=== PATIENT | male | born 1985 | race African-American/Black ===

== ENCOUNTER 2020-11-01 14:05 | Emergency (ER) | payer SELFPAY | END 2020-11-01 19:15 | disposition left against medical advice (07) | PROVIDERS: Emergency Provider Emergency Medicine | DX: R10.9 Unspecified abdominal pain (principal) | CPT/HCPCS: 99281 ==

== ENCOUNTER 2020-11-02 22:26 | Emergency (ER) | payer OTHER, SELFPAY ==
--- NOTE | 2020-11-02 22:47 | ECG_ITS ---
Test Reason : BURNING [place]ENS[place] Blood Pressure : / mmHG Vent. Rate : 063 BPM Atrial Rate : 063 BPM P-R Int : 150 ms QRS Dur : 080 ms QT Int : 386 ms P-R-T Axes : 064 -47 008 degrees QTc Int : 395 ms Normal sinus rhythm Left anterior fascicular block Nonspecific T wave abnormality Abnormal ECG No previous ECGs available Referred By: Leonor Jeffery Electronically Signed By:JUAN ANTONIO VAZQUEZ MD
--- NOTE | 2020-11-03 00:51 | ED.CHESTPAIN ---
HPI - Chest Pain General Chief Complaint: Chest Pain Stated Complaint: chest pain Time Seen by Provider: 11/02/20 23:14 Source: patient Mode of arrival: ambulatory Limitations: no limitations History of Present Illness MD complaint: chest pain Onset (ago): week(s) (2) Timing of current episode: constant Onset: during rest and during exertion Pain location: substernal and epigastric Pain radiation: none Severity: moderate Relieving factors: antacids Exacerbating factors: eating Treatment prior to arrival: none Related Data Previous Rx's Medication Instructions Recorded omeprazole 20 mg PO DAILY 14 Days #14 tab 11/03/20 Allergies Allergy/AdvReac Type Severity Reaction Status Date / Time No Known Allergies Allergy Verified 11/03/20 00:56 Review of Systems Review of Systems: Constitutional : No Weight loss, No Fever, No Chills ENT/Mouth : No sore throat, No Rhinorrhea Eyes: No Eye Pain, No Swelling Cardiovascular : pos Chest Pain, no SOB, no Dyspnea on Exertion, No Orthopnea, No Edema, No Palpitations Respiratory : No Cough, No Sputum Gastrointestinal : no Nausea, No Vomiting, No Diarrhea, No abdominal Pain, No Hematochezia, No Melena Genitourinary : No Dysuria, No Urinary Frequency Musculoskeletal : No joint pain, No Myalgias, No Joint Swelling Skin : No Skin Lesions, No rash Neuro : No Weakness, No Numbness, No Dizziness, No Headache Psych : No Anxiety/Panic, No Depression Heme/Lymph: No Bruising, No Lymphadenopathy Endocrine : No Polyuria, No Polydipsia All other systems reviewed and are negative [facility]LY [facility] Past Medical History Medical History No active medical problems Social History Social History (Updated 11/03/20 @ 01:03 by Leonor Jeffery DO) Alcohol intake: current Alcohol intake frequency: holidays/special occasions only Alcohol type: beer Smoking Status: Never smoker Use of substances other than those prescribed or required for medical reasons: No Advance Directives: No Advance Directives Information Provided: No Physical Exam Vital Signs: Vital Signs: Last Vital Signs Temp 98.2 F 11/03/20 01:25 Pulse 56 11/03/20 03:48 Resp 3 L 11/03/20 03:48 BP 111/76 11/03/20 03:48 Pulse Ox 99 11/03/20 03:48 Body Mass Index 32.5 Appearance: Alert. Oriented X3. No acute distress. Eyes: Pupils equal, round and reactive to light. ENT: Pharynx normal. Neck: Normal inspection. Neck supple. CVS: Normal heart rate and rhythm. Pulses normal. Respiratory: No respiratory distress. Breath sounds normal. Abdomen: Soft and nontender. Skin: Skin warm and dry. Normal skin color. Normal skin turgor. Extremities: No lower extremity edema. No calf ttp Neuro: Oriented X 3. No motor deficit. No sensory deficit. Course Course Course Narrative: repeat troponin negative, feels much better, stable for DC no distress MDM - Chest Pain MDM Narrative Medical decision making narrative: 35 yo male with no sig PMH who comes in with 2 weeks of burning epigastric and chest pain - possible GERD, at this time will need labs, EKG, CXR, troponin x 1, PPI and GI cocktail - PERC negative Lab Data Result diagrams: 11/03/20 02:19 11/03/20 02:19 Labs: Lab Results 11/03/20 11/03/20 11/03/20 Range/Units 02:18 02:18 02:18 WBC (4.8-10.8) X10*3/uL RBC (4.60-5.80) X10*6/uL Hgb (14.0-18.0) g/dl Hct (42-52) % MCV (80-98) fL MCH (27.0-33.0) pg MCHC (31.0-36.0) g/dl RDW (11.0-16.0) % Plt Count (160-400) X10*3/uL MPV (9.4-12.4) fL Immature Gran % (Auto) (0.0-0.4) % Neut % (Auto) (45-73) % Lymph % (Auto) (20-40) % [place] % (Auto) (2-11) % Eos % (Auto) (0-4) % Baso % (Auto) (0-2) % Lymph # (Auto) (1.2-4.9) X10*3/uL [place] # (Auto) (0.1-1.2) X10*3/uL Eos # (Auto) (0.0-0.4) X10*3/uL Baso # (Auto) (0.0-0.2) X10*3/uL Abs Immat Gran (auto) (0.00-0.03) X10*3/uL Absolute Neuts (auto) (2.0-8.3) X10*3/uL Absolute Nucleated RBC (0.0-0.012) X10*3/uL Nucleated RBC % (auto) (0.0-0.2) /100WBC Hold Blue Top SEE NOTE Sodium (135-145) mmol/L Potassium (3.3-5.1) mmol/l Chloride (96-108) mmol/L Carbon Dioxide (22-29) mmol/L Anion Gap (12-20) BUN (9-16) mg/dL Creatinine (0.5-1.4) mg/dL Estim Creat Clear Calc Estimated GFR Random Glucose (60-115) mg/dL Calcium (8.4-10.2) mg/dL Magnesium (1.6-2.6) mg/dL Total Bilirubin (0.0-1.0) mg/dL Direct Bilirubin (0.0-0.5) mg/dL AST (5-37) U/L ALT (0-40) U/L Alkaline Phosphatase (39-117) U/L Troponin I High Sens 16.9 (<3.5-35.0) ng/L Total Protein (6.5-8.0) g/dL Albumin (3.5-5.0) g/dL Lipase 70 (8-78) U/L 11/03/20 11/03/20 11/03/20 Range/Units 02:19 02:19 04:47 WBC 6.6 (4.8-10.8) X10*3/uL RBC 5.59 (4.60-5.80) X10*6/uL Hgb 15.0 (14.0-18.0) g/dl Hct 46.0 (42-52) % MCV 82.3 (80-98) fL MCH 26.8 L (27.0-33.0) pg MCHC 32.6 (31.0-36.0) g/dl RDW 14.1 (11.0-16.0) % Plt Count 250 (160-400) X10*3/uL MPV 9.7 (9.4-12.4) fL Immature Gran % (Auto) 0.2 (0.0-0.4) % Neut % (Auto) 47.6 (45-73) % Lymph % (Auto) 41.9 H (20-40) % [place] % (Auto) 7.4 (2-11) % Eos % (Auto) 2.6 (0-4) % Baso % (Auto) 0.3 (0-2) % Lymph # (Auto) 2.8 (1.2-4.9) X10*3/uL [place] # (Auto) 0.5 (0.1-1.2) X10*3/uL Eos # (Auto) 0.2 (0.0-0.4) X10*3/uL Baso # (Auto) 0.0 (0.0-0.2) X10*3/uL Abs Immat Gran (auto) 0.01 (0.00-0.03) X10*3/uL Absolute Neuts (auto) 3.1 (2.0-8.3) X10*3/uL Absolute Nucleated RBC 0.000 (0.0-0.012) X10*3/uL Nucleated RBC % (auto) 0.0 (0.0-0.2) /100WBC Hold Blue Top Sodium 139 (135-145) mmol/L Potassium 4.3 (3.3-5.1) mmol/l Chloride 103 (96-108) mmol/L Carbon Dioxide 26 (22-29) mmol/L Anion Gap 14 (12-20) BUN 19 H (9-16) mg/dL Creatinine 1.06 (0.5-1.4) mg/dL Estim Creat Clear Calc 122.7 Estimated GFR > 60 Random Glucose 106 (60-115) mg/dL Calcium 9.0 (8.4-10.2) mg/dL Magnesium 2.2 (1.6-2.6) mg/dL Total Bilirubin 0.2 (0.0-1.0) mg/dL Direct Bilirubin < 0.2 (0.0-0.5) mg/dL AST 37 (5-37) U/L ALT 40 (0-40) U/L Alkaline Phosphatase 52 (39-117) U/L Troponin I High Sens 16.8 (<3.5-35.0) ng/L Total Protein 6.7 (6.5-8.0) g/dL Albumin 4.1 (3.5-5.0) g/dL Lipase (8-78) U/L ECG Data ECG #1: Attestation: I personally reviewed and interpreted this ECG as follows: ECG interpretation date: 11/03/20 ECG interpretation time: 00:59 Interpretation: Rate: 63 Rhythm: NSR [place]: left Normal P waves. Normal DAVON. Normal QRS complex. ST T wave : normal, no YANDEL, no acute ischemia qTC: normal prior studies: no acute ischemia The study has been interpreted contemporaneously by me. . Discharge Plan Discharge Clinical Impression: Atypical chest pain Patient Disposition: Home, Self-Care Instructions: Chest Pain (ED) Additional Instructions: return to ED for any worsening symptoms or concerns Prescriptions: New omeprazole 20 mg tablet,delayed release (DR/EC) 20 mg PO DAILY 14 Days Qty: 14 RF: 0 Referrals: Physician,Unknown [Primary Care Provider] - 2 days (PCP if not better) Stand Alone Forms: Work/School Release
--- NOTE | 2020-11-03 00:57 | XR_ITS ---
EXAMINATION: XR CHEST CLINICAL INFORMATION: Chest pain COMPARISON: None TECHNIQUE: Frontal view of the chest was obtained. FINDINGS: EKG leads overlie the chest. Lungs are clear. Lung volumes are normal. No consolidation, pneumothorax, or pleural effusion. Cardiac and mediastinal contours are normal. Pulmonary vasculature is unremarkable. No acute osseous findings. XR/XR chest 1V IMPRESSION: No acute pulmonary findings.
[2020-11-03] MEDS: Omeprazole 20 MG CAPSULE.DR PO (01:17)
[2020-11-03] MEDS: Lidocaine HCl Viscous 2 % 15 ML SOLUTION MUCOUS MEM (01:18)
[2020-11-03] MEDS: Magnesium Hydrox/Alum Hydrox 30 ML ORAL.SUSP 15 ML PO (01:18)
[2020-11-03 01:25] VITALS: BP 110/75; PULSE 58; RESP 18; TEMP 36.8; O2SAT 99; BMI 32.5
--- NOTE | 2020-11-03 01:27 | PC.NURSE ---
pt medicated for a burning feeling to his chest. hob elevated. skin pink warm and dry. vitals stable.
[2020-11-03 02:24] LABS: MANUAL DIFF FLAG NO
[2020-11-03 02:26] LABS: Basophils Percent Auto 0.3 % (0-2); Eosinophils Absolute Auto 0.2 X10*3/uL (0.0-0.4); Eosinophils Percent Auto 2.6 % (0-4); Imm Gran Abs Auto 0.01 X10*3/uL (0.00-0.03); Imm Gran Pct Auto 0.2 % (0.0-0.4); Lymphocytes Absolute Auto 2.8 X10*3/uL (1.2-4.9); Lymphocytes Percent Auto 41.9 % (20-40); Mean Corpuscular HGB Conc 32.6 g/dl (31.0-36.0); Mean Corpuscular Hemoglobin 26.8 pg (27.0-33.0); Mean Corpuscular Volume 82.3 fL (80-98); Mean Platelet Volume 9.7 fL (9.4-12.4); Monocytes Absolute Auto 0.5 X10*3/uL (0.1-1.2); Monocytes Percent Auto 7.4 % (2-11); Neutrophils Absolute Auto 3.1 X10*3/uL (2.0-8.3); Neutrophils Percent Auto 47.6 % (45-73); Platelet Count 250 X10*3/uL (160-400); Red Blood Count 5.59 X10*6/uL (4.60-5.80); Red Cell Distribution Width 14.1 % (11.0-16.0); White Blood Count 6.6 X10*3/uL (4.8-10.8)
[2020-11-03 02:48] LABS: Alanine Aminotransferase 40 U/L (0-40); Albumin Level 4.1 g/dL (3.5-5.0); Alkaline Phosphatase 52 U/L (39-117); Anion Gap 14 (12-20); Aspartate Amino Transferase 37 U/L (5-37); Bilirubin Direct < 0.2 mg/dL (0.0-0.5); Bilirubin Total 0.2 mg/dL (0.0-1.0); Blood Urea Nitrogen 19 mg/dL (9-16); Carbon Dioxide 26 mmol/L (22-29); Chloride 103 mmol/L (96-108); Creatinine Clr Calc Pharmacy 122.7; Estimated Glomerular Filt Rate > 60; Glucose Random 106 mg/dL (60-115); Magnesium 2.2 mg/dL (1.6-2.6); Potassium 4.3 mmol/l (3.3-5.1); Sodium 139 mmol/L (135-145); Total Protein 6.7 g/dL (6.5-8.0)
[2020-11-03 02:48] LABS: Lipase 70 U/L (8-78)
[2020-11-03 02:51] LABS: Troponin-I High Sensitivity 16.9 ng/L (<3.5-35.0)
[2020-11-03 03:48] VITALS: BP 111/76; PULSE 56; RESP 3; O2SAT 99
[2020-11-03 04:00] VITALS: BP 114/61; PULSE 57; RESP 18; O2SAT 98
[2020-11-03 05:21] LABS: Troponin-I High Sensitivity 16.8 ng/L (<3.5-35.0)
[2020-11-03 05:28] VITALS: BP 103/65; PULSE 56; RESP 16; O2SAT 98
== END 2020-11-03 05:33 | disposition home or self-care (01) ==
PROVIDERS: Emergency Provider Emergency Medicine
DX: R07.89 Other chest pain (principal); Z79.899 Other long term (current) drug therapy
CPT/HCPCS: 36415; 71045; 80048; 80076; 83690; 83735; 84484; 85025; 93005; 99284

== ENCOUNTER 2021-01-17 19:11 | Emergency (ER) | payer OTHER, SELFPAY ==
--- NOTE | ~2021-01-17 | US_ITS ---
EXAMINATION: ABDOMINAL ULTRASOUND LIMITED CLINICAL INFORMATION: Right upper quadrant pain. COMPARISON: None. TECHNIQUE: Limited real-time imaging of the right upper quadrant abdominal viscera. The examination was stopped by the patient before completion. FINDINGS: PANCREAS: The visualized pancreatic head and body are normal in appearance. The remainder of the pancreas is obscured from visualization by the overlying bowel gas. LIVER: The visualized portions of the left lobe of the liver is of normal size and echogenicity without focal lesions nor intrahepatic biliary ductal dilation. US/US abdomen limited IMPRESSION: Unremarkable limited right upper quadrant ultrasound.
[2021-01-17 20:30] VITALS: BP 131/77; PULSE 74; RESP 14; TEMP 36.6; O2SAT 97; BMI 33.5
[2021-01-17 22:53] VITALS: BP 166/93; PULSE 57; RESP 16; TEMP 36.8; O2SAT 99
--- NOTE | 2021-01-17 23:30 | ECG_ITS ---
Test Reason : EPIGASTRIC PAIN Blood Pressure : / mmHG Vent. Rate : 054 BPM Atrial Rate : 054 BPM P-R Int : 162 ms QRS Dur : 082 ms QT Int : 424 ms P-R-T Axes : 053 -04 006 degrees QTc Int : 402 ms Sinus bradycardia with sinus arrhythmia Nonspecific ST and T wave abnormality Abnormal ECG When compared with ECG of 02-NOV-2020 22:47, Left anterior fascicular block is no longer Present Referred By: Roopa Alvarez Electronically Signed By:Joe Horta
[2021-01-17 23:31] VITALS: BP 130/92; PULSE 58; RESP 18; TEMP 36.8; O2SAT 97; BMI 33.5
--- NOTE | 2021-01-17 23:31 | ED.ABDPAIN ---
HPI - Abdominal Pain General Chief Complaint: General Medical Stated Complaint: abdominal pain Time Seen by Provider: 01/17/21 23:27 History of Present Illness HPI narrative: Patient 35 years old presented with having abdominal pain. It is burning in nature. It is worse in the epigastric area. Patient denies any fever chills. No cough and no congestion or upper respiratory symptoms. No diaphoresis. No fever no chills. Patient from home. History of similar pain back in October. Had labs done at [facility]. Patient states that there was a liquid that made it better. Subsequently patient did not take his omeprazole. Came back in for further evaluation. MD elicited complaint: abdominal pain Related Data Previous Rx's Medication Instructions Recorded omeprazole 20 mg PO DAILY 14 Days #14 tab 11/03/20 omeprazole magnesium [Prilosec OTC] 20 mg PO DAILY #30 tab 01/18/21 Allergies Allergy/AdvReac Type Severity Reaction Status Date / Time No Known Allergies Allergy Verified 11/03/20 00:56 Review of Systems Review of Systems Yes all other systems are reviewed and are negative Physical Exam Vital Signs: Vital Signs: Last Vital Signs Temp 98.3 F 01/17/21 23:31 Pulse 58 01/17/21 23:31 Resp 18 01/17/21 23:31 BP 130/92 H 01/17/21 23:31 Pulse Ox 97 01/17/21 23:31 Body Mass Index 33.5 Appearance: Alert. Oriented X3. No acute distress. Eyes: Pupils equal, round and reactive to light. ENT: Pharynx normal. Neck: Normal inspection. Neck supple. No lymph nodes noted. No crepitus CVS: Normal heart rate and rhythm. Pulses normal. Normal S1 and S2 Respiratory: No respiratory distress. Breath sounds normal. No Wheezing. No rales Abdomen: Soft and nontender. No rigidity. No distention. good BS x4 Skin: Skin warm and dry. Normal skin color. Normal skin turgor. Extremities: No lower extremity edema. Neurovascular intact to all extremities. No Lacerations. No Rash Neuro: Oriented X 3. No motor deficit. No sensory deficit. Moving all extermities. No slurred speech MDM - Abdominal Pain MDM Narrative Medical decision making narrative: Patient well-appearing. Lipase is normal no evidence for pancreatitis. Bilirubin is normal. AST ALT only minimally elevated likely from liver parenchymal issues. Ask patient to have an ultrasound. After starting the initial exam patient feels extremely uncomfortable. Ask the geotechnical engineering technician to stop. Patient understood the small risk of having biliary disease still exist. Does not want to study at this time. Patient's electrolytes are otherwise unremarkable. Patient's white count is normal. Patient's claims last time he had omeprazole and that has seems to help. Will have patient continue with the omeprazole. Close follow-up outpatient basis. Avoid fatty foods spicy food. Reflux precaution. In stable condition. Medical Records Attestation: I reviewed the patient's medical records. Lab Data Result diagrams: 01/18/21 00:30 01/18/21 00:30 Labs: Lab Results 01/18/21 01/18/21 01/18/21 Range/Units 00:30 00:30 00:30 WBC 5.5 (4.8-10.8) X10*3/uL RBC 5.55 (4.60-5.80) X10*6/uL Hgb 15.0 (14.0-18.0) g/dl Hct 46.3 (42-52) % MCV 83.4 (80-98) fL MCH 27.0 (27.0-33.0) pg MCHC 32.4 (31.0-36.0) g/dl RDW 14.3 (11.0-16.0) % Plt Count 219 (160-400) X10*3/uL MPV 10.0 (9.4-12.4) fL Immature Gran % (Auto) 0.2 (0.0-0.4) % Neut % (Auto) 40.0 L (45-73) % Lymph % (Auto) 49.8 H (20-40) % [place] % (Auto) 7.0 (2-11) % Eos % (Auto) 2.3 (0-4) % Baso % (Auto) 0.7 (0-2) % Lymph # (Auto) 2.8 (1.2-4.9) X10*3/uL [place] # (Auto) 0.4 (0.1-1.2) X10*3/uL Eos # (Auto) 0.1 (0.0-0.4) X10*3/uL Baso # (Auto) 0.0 (0.0-0.2) X10*3/uL Abs Immat Gran (auto) 0.01 (0.00-0.03) X10*3/uL Absolute Neuts (auto) 2.2 (2.0-8.3) X10*3/uL Absolute Nucleated RBC 0.000 (0.0-0.012) X10*3/uL Nucleated RBC % (auto) 0.0 (0.0-0.2) /100WBC Hold Blue Top SEE NOTE Sodium 140 (135-145) mmol/L Potassium 4.5 (3.3-5.1) mmol/L Chloride 104 (96-108) mmol/L Carbon Dioxide 25 (22-29) mmol/L Anion Gap 16 (12-20) BUN 10 (9-16) mg/dL Creatinine 1.22 (0.5-1.4) mg/dL Estim Creat Clear Calc 105.0 Estimated GFR > 60 Random Glucose 93 (60-115) mg/dL Calcium 9.0 (8.4-10.2) mg/dL Total Bilirubin 0.3 (0.0-1.0) mg/dL AST 49 H (5-37) U/L ALT 54 H (0-40) U/L Alkaline Phosphatase 53 (39-117) U/L Total Protein 6.8 (6.5-8.0) g/dL Albumin 4.2 (3.5-5.0) g/dL Lipase 39 (8-78) U/L ECG Data Attestation: I personally reviewed and interpreted this ECG as follows: Interpretation: Sinus heart rate is 55 CA QRS QT within normal limits it is unchanged from previous EKG. Discharge Plan Discharge Clinical Impression: Gastritis Patient Disposition: Home, Self-Care Instructions: Gastritis (ED) Additional Instructions: NO FATTY FOOD. PLEASE DO NOT EAT 2 HOURS PRIOR TO SLEEPING. EXTRA PILLOW AT NIGHT. CLOSE FOLLOW-UP OUTPATIENT BASIS. PLEASE TAKE YOUR OMEPRAZOLE. Prescriptions: New omeprazole magnesium [Prilosec OTC] 20 mg tablet,delayed release (DR/EC) 20 mg PO DAILY Qty: 30 RF: 0 No Action omeprazole 20 mg tablet,delayed release (DR/EC) 20 mg PO DAILY 14 Days Qty: 14 RF: 0 Referrals: Physician,None [Primary Care Provider] - 2 days [facility] Past Medical History Attestation statement: The following information was validated with the patient. Medical History No active medical problems Social History Social History Alcohol intake: current Alcohol intake frequency: a few times a week Alcohol type: wine Smoking Status: Never smoker Use of substances other than those prescribed or required for medical reasons: No Advance Directives: No Advance Directives Information Provided: Yes
[2021-01-18 00:35] LABS: Basophils Percent Auto 0.7 % (0-2); Eosinophils Absolute Auto 0.1 X10*3/uL (0.0-0.4); Eosinophils Percent Auto 2.3 % (0-4); Hematocrit 46.3 % (42-52); Imm Gran Abs Auto 0.01 X10*3/uL (0.00-0.03); Imm Gran Pct Auto 0.2 % (0.0-0.4); Lymphocytes Absolute Auto 2.8 X10*3/uL (1.2-4.9); Lymphocytes Percent Auto 49.8 % (20-40); MANUAL DIFF FLAG NO; Mean Corpuscular HGB Conc 32.4 g/dl (31.0-36.0); Mean Corpuscular Volume 83.4 fL (80-98); Monocytes Absolute Auto 0.4 X10*3/uL (0.1-1.2); Neutrophils Absolute Auto 2.2 X10*3/uL (2.0-8.3); Platelet Count 219 X10*3/uL (160-400); Red Blood Count 5.55 X10*6/uL (4.60-5.80); Red Cell Distribution Width 14.3 % (11.0-16.0); White Blood Count 5.5 X10*3/uL (4.8-10.8)
[2021-01-18] MEDS: PHENobarb/Hyoscy/Atropine/Scop 10 ML ELIXIR PO (01:09)
[2021-01-18] MEDS: Lidocaine HCl Viscous 2 % 15 ML SOLUTION MUCOUS MEM (01:10)
[2021-01-18] MEDS: Magnesium Hydrox/Alum Hydrox 30 ML ORAL.SUSP PO (01:10)
--- NOTE | 2021-01-18 01:13 | PC.NURSE ---
pt denies nausea at this time. verbal from provider to hold the ivf at this time.
[2021-01-18 01:18] LABS: Alanine Aminotransferase 54 U/L (0-40); Albumin Level 4.2 g/dL (3.5-5.0); Alkaline Phosphatase 53 U/L (39-117); Anion Gap 16 (12-20); Aspartate Amino Transferase 49 U/L (5-37); Bilirubin Total 0.3 mg/dL (0.0-1.0); Blood Urea Nitrogen 10 mg/dL (9-16); Carbon Dioxide 25 mmol/L (22-29); Chloride 104 mmol/L (96-108); Estimated Glomerular Filt Rate > 60; Glucose Random 93 mg/dL (60-115); Lipase 39 U/L (8-78); Potassium 4.5 mmol/L (3.3-5.1); Sodium 140 mmol/L (135-145); Total Protein 6.8 g/dL (6.5-8.0)
[2021-01-18 02:01] VITALS: BP 119/77; PULSE 58; RESP 14; O2SAT 98
== END 2021-01-18 02:13 | disposition home or self-care (01) ==
PROVIDERS: Emergency Provider Emergency Medicine Emergency Medical Services
DX: K29.00 Acute gastritis without bleeding (principal); R10.11 Right upper quadrant pain; Z79.899 Other long term (current) drug therapy
CPT/HCPCS: 36415; 76705; 80053; 83690; 85025; 93005; 96365; 96375; 99284

== ENCOUNTER 2022-01-17 06:02 | Emergency (ER) | payer OTHER, SELFPAY ==
[2022-01-17 06:14] VITALS: BP 137/97; PULSE 59; RESP 14; TEMP 36.6; O2SAT 97; BMI 35.2
[2022-01-17 06:18] VITALS: BP 137/97; PULSE 60; RESP 15; TEMP 36.6; O2SAT 96
--- NOTE | 2022-01-17 06:51 | ECG_ITS ---
Test Reason : ABDOMINAL PAIN Blood Pressure : / mmHG Vent. Rate : 055 BPM Atrial Rate : 055 BPM P-R Int : 166 ms QRS Dur : 082 ms QT Int : 418 ms P-R-T Axes : 063 -12 010 degrees QTc Int : 399 ms Sinus bradycardia Nonspecific ST and T wave abnormality Borderline ECG When compared with ECG of 17-JAN-2021 23:50, No significant change was found Referred By: Ashley White Electronically Signed By:WES HEBERT
--- NOTE | 2022-01-17 06:52 | ED.ABDPAIN ---
HPI - Abdominal Pain General Chief Complaint: Abdominal Pain Stated Complaint: abd pain Time Seen by Provider: 01/17/22 06:26 Source: patient Mode of arrival: ambulatory Limitations: no limitations History of Present Illness HPI narrative: Patient comes to the emergency room complaining of abdominal burning sensation. Patient states it started yesterday after he a Anu's. Patient has been nauseous, no vomiting or diarrhea . Patient states that he has some burning sensation radiating down the suprapubic area. Patient states that he was recently tested for STDs a few days ago in the clinic, patient tested negative for STDs. Patient denies penile discharge. No UTI symptoms, Patient has no flank pain, no fever chills, no URI symptoms. Related Data Previous Rx's Medication Instructions Recorded meloxicam 15 mg tablet 15 mg PO DAILY #14 tab 09/29/21 omeprazole 20 mg capsule,delayed 20 mg PO DAILY #14 cap 01/17/22 release Allergies Allergy/AdvReac Type Severity Reaction Status Date / Time No Known Allergies Allergy Verified 11/03/20 00:56 Review of Systems Review of Systems Constitutional : No Weight loss, No Fever, No Chills, No Night Sweats, No Fatigue, No Malaise ENT/Mouth : No Hearing loss, No Ear Pain, No Nasal Congestion, No Sinus Pain, No Hoarseness, No sore throat, No Rhinorrhea, No Swallowing Difficulty Eyes: No Eye Pain, No Swelling, No Redness, No Foreign Body, No Discharge, No Vision Changes Cardiovascular : No Chest Pain, No SOB, No Dyspnea on Exertion, No Orthopnea, No Edema, No Palpitations Respiratory : No Cough, No Sputum, No Wheezing, No Smoke Exposure, No Dyspnea Gastrointestinal : Complaining of Nausea, No Vomiting, No Diarrhea, No Constipation, complaining of burning sensation throughout the abdomen Genitourinary : no irregular bleeding, No Dysuria, No Urinary Frequency, No Hematuria, No Urinary Incontinence, No Urgency, No Flank Pain, No Urinary Flow Changes, No Hesitancy Musculoskeletal : No joint pain, No Myalgias, No Joint Swelling Skin : No Skin Lesions, No rash Neuro : No Weakness, No Numbness, No Paresthesias, No Loss of Consciousness, No Dizziness, No Headache Psych : No Anxiety/Panic, No Depression, No SI/HI/AH/VH, No Social Issues, Heme/Lymph: No Bruising, No Bleeding,No Lymphadenopathy Endocrine : No Polyuria, No Polydipsia, No Temperature Intolerance [facility] Past Medical History Medical History No active medical problems Social History Social History Alcohol intake: former Patient Tobacco Use Status: Never used Tobacco Use of substances other than those prescribed or required for medical reasons: No Advance Directives: No Physical Exam ED Vital Signs: Vital Signs - 24 hr 01/17/22 06:14 01/17/22 06:18 Temperature 98 F 98 F Pulse Rate 59 60 Respiratory Rate 14 15 Blood Pressure 137/97 H 137/97 H Pulse Oximetry 97 96 BMI result Body Mass Index 35.2 Const Other: Appearance: Alert. Oriented X3. No acute distress. Eyes: Pupils equal, round and reactive to light. ENT: Pharynx normal. Neck: Normal inspection. Neck supple. No lymph nodes noted. No crepitus CVS: Normal heart rate and rhythm. Pulses normal. Normal S1 and S2 Respiratory: No respiratory distress. Breath sounds normal. No Wheezing. No rales Abdomen: Soft and nontender. No rigidity. No distention. Umbilical hernia, easily reducible, not incarcerated Skin: Skin warm and dry. Normal skin color. Normal skin turgor. Extremities: No lower extremity edema. No Lacerations. No Rash Neuro: Oriented X 3. No motor deficit. No sensory deficit. Moving all extremities. No slurred speech. CN 2 through 12 grossly intact Psych: calm, cooperative, normal affect Course Course Course Narrative: Patient has been previously been diagnosed with GERD. Abdominal exam is fairly benign. Patient is getting IV fluids, famotidine, Zofran, and GI cocktail. All the labs are pending I discussed the labs with the patient, at baseline. Patient did not provide a urine sample. Patient states that he is convinced that somebody poisoned him when he is on purpose MDM - Abdominal Pain Lab Data Result diagrams: 01/17/22 07:13 01/17/22 07:13 Labs: Lab Results 01/17/22 01/17/22 Range/Units 07:13 07:13 WBC 5.3 (4.8-10.8) X10*3/uL RBC 5.80 (4.60-5.80) X10*6/uL Hgb 15.4 (14.0-18.0) g/dl Hct 47.2 (42.0-52.0) % MCV 81.4 (80.0-98.0) fL MCH 26.6 L (27.0-33.0) pg MCHC 32.6 (31.0-36.0) g/dl RDW 14.1 (11.0-16.0) % Plt Count 260 (160-400) X10*3/uL MPV 9.6 (9.4-12.4) fL Immature Gran % (Auto) 0.0 (0.0-0.4) % Neut % (Auto) 51.7 (45-73) % Lymph % (Auto) 37.9 (20-40) % Richardson % (Auto) 8.5 (2-11) % Eos % (Auto) 1.5 (0-4) % Baso % (Auto) 0.4 (0-2) % Lymph # (Auto) 2.0 (1.2-4.9) X10*3/uL [place] # (Auto) 0.5 (0.1-1.2) X10*3/uL Eos # (Auto) 0.1 (0.0-0.4) X10*3/uL Baso # (Auto) 0.0 (0.0-0.2) X10*3/uL Abs Immat Gran (auto) 0.00 (0.00-0.03) X10*3/uL Absolute Neuts (auto) 2.8 (2.0-8.3) x10*3/uL Absolute Nucleated RBC 0.000 (0.0-0.012) X10*3/uL Nucleated RBC % (auto) 0.0 (0.0-0.2) /100WBC Sodium 139 (135-145) mmol/L Potassium 4.4 (3.3-5.1) mmol/L Chloride 106 (96-108) mmol/L Carbon Dioxide 28 (22-29) mmol/L Anion Gap 9 L (12-20) BUN 13 (9-16) mg/dL Creatinine 1.31 (0.5-1.4) mg/dL Estim Creat Clear Calc 102.3 Estimated GFR > 60 Random Glucose 119 H (60-115) mg/dL Calcium 9.3 (8.4-10.2) mg/dL Total Bilirubin 0.2 (0.0-1.0) mg/dL Direct Bilirubin < 0.2 (0.0-0.5) mg/dL AST 41 H (5-37) U/L ALT 39 (0-40) U/L Alkaline Phosphatase 48 (39-117) U/L Total Protein 6.4 L (6.5-8.0) g/dL Albumin 4.0 (3.5-5.0) g/dL Lipase 44 (8-78) U/L Discharge Plan Discharge Clinical Impression: Abdominal pain Patient Disposition: Home, Self-Care Instructions: Abdominal Pain (ED) Additional Instructions: Please follow-up with your primary care physician tomorrow. If you have any worsening or new symptoms, please return to the emergency room or call 911 Prescriptions: New omeprazole 20 mg capsule,delayed release(DR/EC) 20 mg PO DAILY Qty: 14 0RF No Action meloxicam 15 mg tablet 15 mg PO DAILY Qty: 14 0RF
[2022-01-17 07:20] LABS: MANUAL DIFF FLAG NO
[2022-01-17] MEDS: Magnesium Hydrox/Alum Hydrox 30 ML ORAL.SUSP PO (07:21)
[2022-01-17] MEDS: Famotidine/PF 20 MG/2 ML VIAL IVPUSH (07:21)
[2022-01-17] MEDS: ondansetron HCL 4 MG/2 ML VIAL IVPUSH (07:21)
[2022-01-17] MEDS: Lidocaine HCl Viscous 2 % 15 ML SOLUTION MUCOUS MEM (07:21)
[2022-01-17] MEDS: 0.9 % Sodium Chloride 1,000 ML 999 ML IVCONT (07:29)
[2022-01-17 07:33] LABS: Basophils Percent Auto 0.4 % (0-2); Eosinophils Absolute Auto 0.1 X10*3/uL (0.0-0.4); Eosinophils Percent Auto 1.5 % (0-4); Hematocrit 47.2 % (42.0-52.0); Hemoglobin 15.4 g/dl (14.0-18.0); Lymphocytes Percent Auto 37.9 % (20-40); Mean Corpuscular HGB Conc 32.6 g/dl (31.0-36.0); Mean Corpuscular Hemoglobin 26.6 pg (27.0-33.0); Mean Corpuscular Volume 81.4 fL (80.0-98.0); Mean Platelet Volume 9.6 fL (9.4-12.4); Monocytes Absolute Auto 0.5 X10*3/uL (0.1-1.2); Monocytes Percent Auto 8.5 % (2-11); Neutrophils Absolute Auto 2.8 x10*3/uL (2.0-8.3); Neutrophils Percent Auto 51.7 % (45-73); Platelet Count 260 X10*3/uL (160-400); Red Cell Distribution Width 14.1 % (11.0-16.0); White Blood Count 5.3 X10*3/uL (4.8-10.8)
[2022-01-17 07:43] LABS: Alanine Aminotransferase 39 U/L (0-40); Alkaline Phosphatase 48 U/L (39-117); Aspartate Amino Transferase 41 U/L (5-37); Bilirubin Direct < 0.2 mg/dL (0.0-0.5); Bilirubin Total 0.2 mg/dL (0.0-1.0); Blood Urea Nitrogen 13 mg/dL (9-16); Calcium 9.3 mg/dL (8.4-10.2); Creatinine Clr Calc Pharmacy 102.3; Estimated Glomerular Filt Rate > 60; Glucose Random 119 mg/dL (60-115); Lipase 44 U/L (8-78); Total Protein 6.4 g/dL (6.5-8.0)
[2022-01-17 08:10] LABS: Anion Gap 9 (12-20); Carbon Dioxide 28 mmol/L (22-29); Chloride 106 mmol/L (96-108); Potassium 4.4 mmol/L (3.3-5.1); Sodium 139 mmol/L (135-145)
== END 2022-01-17 08:52 | disposition home or self-care (01) ==
PROVIDERS: Emergency Provider Emergency Medicine
DX: R10.9 Unspecified abdominal pain (principal); K21.9 Gastro-esophageal reflux disease without esophagitis
CPT/HCPCS: 36415; 80048; 80076; 83690; 85025; 93005; 96361; 96374; 96375; 99284; J2405

== ENCOUNTER 2022-03-07 19:03 | Emergency (ER) | payer OTHER, SELFPAY ==
[2022-03-07 19:49] VITALS: BP 123/78; PULSE 86; RESP 18; TEMP 36.1; O2SAT 100; BMI 35.2
--- NOTE | 2022-03-07 20:05 | PC.NURSE ---
PATIENT REFUSED LAB DRAW RN AWARE .
[2022-03-07 20:22] LABS: COVID-19 Test Negative (Negative); IDNOW Serial# 55D5AD1C
[2022-03-07 20:30] LABS: Influenza A Negative (Negative); Influenza B2 Negative (Negative)
[2022-03-07 21:21] LABS: Appearance Urine CLEAR; Color Urine YELLOW; Glucose Urine UA NEG (NEG); Leukocyte Esterase Urine NEG (NEG); Nitrite Urine NEG (NEG); PH 6.5 (5.0-8.0); Urine Blood NEG (NEG); Urine Ketones NEG (NEG); Urine Protein NEG (NEG-TRACE)
[2022-03-07 21:27] LABS: Amphetamine Screen Urine Not Detected (Not Detect); Barbiturates, Urine Not Detected (Not Detect); Benzodiazepines Screen Urine Not Detected (Not Detect); Cannabinoid Screen Urine Not Detected (Not Detect); Cocaine Screen Urine Not Detected (Not Detect); Fentanyl, urine Not Detected (Not Detect); Opiate Screen Urine POSITIVE (Not Detect); Phencyclidine Screen Urine Not Detected (Not Detect)
== END 2022-03-07 22:55 | disposition left against medical advice (07) ==
PROVIDERS: Emergency Provider Emergency Medicine
DX: M25.551 Pain in right hip (principal); M79.604 Pain in right leg; M54.2 Cervicalgia; R51.9 Headache, unspecified; Z20.822 Contact with and (suspected) exposure to COVID-19
CPT/HCPCS: 80307; 81003; 87502; 87635; 99283

== ENCOUNTER 2024-12-04 11:16 | Inpatient (IN) | payer MEDICAID, SELFPAY ==
[2024-12-04 11:26] VITALS: BP 130/85; BP 170/110; PULSE 70; PULSE 84; RESP 16; TEMP 37.1; O2SAT 98; O2SAT 99; BMI 35.3
--- NOTE | 2024-12-04 11:28 | ED.PSYCH ---
HPI - Psych General Chief Complaint: Psychiatric Symptoms Stated Complaint: SECTION 12, HI YESTERDAY, DENIES SI/HI PER EMS Time Seen by Provider: 12/04/24 11:28 Source: patient, EMS, RN notes reviewed and old records reviewed Mode of arrival: EMS History of Present Illness ED Provider: Sravanthi [facility] Narrative: Patient is a 39-year-old male with history of TBI in 2012, psychosis in the past presenting to the ED on a section 12 with concern for homicidal ideation. Per patient's sister's report, patient has been having paranoid and delusional thoughts that he was in the and yesterday he made comments to his sister about smoking them all. Sister states that the patient was never in the . Patient denies current homicidal or suicidal ideation, but does state that he was recently debriefed, and feels that people are after him and his life is in danger. Denies any physical complaints. Denies any drug or alcohol use. Patient states he is not currently prescribed any medications. MD complaint: homicidal ideation and other Onset (ago): day(s) History of same: Yes Associated psychiatric symptoms: delusions Associated symptoms: denies other symptoms Treatments prior to arrival: placed on mental health hold Related Data Previous Rx's ?Medication ?Instructions ?Recorded meloxicam 15 mg tablet 15 mg PO DAILY #14 tabs 09/29/21 omeprazole 20 mg capsule,delayed 20 mg PO DAILY #14 caps 01/17/22 release Allergies Allergy/AdvReac Type Severity Reaction Status Date / Time No Known Allergies Allergy Verified 12/04/24 11:31 Review of Systems Review of Systems: As per HPI Yes all other systems are reviewed and are negative Constitutional: Constitutional: Reports as per HPI [facility], [facility] Past Medical History Medical History No active medical problems Social History Social History Alcohol intake: former Patient Tobacco Use Status: Never used Tobacco Advance Directives: No Advance Directives Information Provided: Yes Do you have a plan to hurt others: Vague Physical Exam Vital Signs: Vital Signs: Last Vital Signs Temp 98.7 F 12/04/24 11:26 Pulse 70 12/04/24 11:26 Resp 16 02/14/25 11:26 BP 130/85 12/04/24 11:26 Pulse Ox 98 12/04/24 11:26 O2 Del Method Room Air 12/04/24 11:26 BMI result Body Mass Index 35.3 Vital signs have been reviewed and appear to be correct. Blood pressure normal. Heart rate normal. Respiratory rate normal. Temperature normal. Oxygen saturation normal. Const: General: cooperative, healthy appearing and no acute distress Orientation/consciousness: oriented to person, oriented to place, oriented to time and patient oriented x3 Limitations: no limitations HEENT: Head: Yes normocephalic and Yes atraumatic Ears: external ears normal General nose exam: Normal external nose present Face and sinus: Yes face symmetric Mouth: oropharynx normal and moist mucous membranes Throat: Yes uvula midline Eyes: Pupils: Equal, round and reactive pupils present Neck: Neck: Yes normal visual inspection and Yes supple Resp: Effort & Inspection: normal respiratory effort and able to speak in complete sentences Auscultation: clear to auscultation bilaterally Cardio: Rate: regular rate Rhythm: regular rhythm Heart sounds: S1 normal heart sound present and S2 normal heart sound present GI: Palpation (GI): Soft to palpation and nontender Auscultation: normoactive bowel sounds : General: Yes no CVA tenderness Back/Spine/Pelvis: Back: no CVA tenderness Skin: General skin exam: elasticity normal and turgor normal Neuro: General: oriented to person, oriented to place, oriented to time, patient oriented x3, moves all extremities, no focal motor deficits and CN's II-XI intact bilaterally Cranial nerves: Yes Equal, round and reactive pupils present Cognition (Neuro): normal cognition Extrem: General: Yes full ROM, Yes no pedal edema and Yes no calf tenderness Psych: Appearance: grossly normal Mental Status: mental status grossly normal Speech and movement: Normal speech and movement present Affect: normal affect Attitude: cooperative Thought process: Illogical thought process present Thought content: suicidality, no homicidality and Paranoid delusions present Medical Decision Making Medical Decision Making MDM Narrative: Patient is a 39-year-old male with history of TBI in 2013, psychosis in the past presenting to the ED on a section 12 with concern for homicidal ideation. On exam patient is awake, A+Ox3, VS WNL, afebrile, normal neurological exam without focal deficits, physical exam findings as above. Given reported symptoms and physical exam findings, initial differential includes but is not limited to delusions, paranoia, psychosis, homicidal ideation. Labs unremarkable. UA is without evidence of infection. Urine drug screen and ethanol negative. Patient medically cleared at this time for CARE team evaluation and placed on physician observation. Per Ainsley from CARE team, patient will be inpatient level of care. Differential Diagnosis Differential Diagnoses: The differential diagnosis associated with the presentation includes as per [facility] Admission/Observation Consideration of admission/observation: Escalation of care including admission/observation considered Consult Healthcare Provider Management of the patient was discussed with: Behavioral Health Provider Lab Data [facility] Lab Attestation statement: I reviewed the patient's lab results. As per [facility] 12/04/24 12:43 12/04/24 12:43 Labs: Lab Results 12/04/24 12/04/24 12/04/24 Range/Units 12:43 12:52 12:57 WBC 6.4 (4.8-10.8) X10*3/uL RBC 5.49 (4.60-5.80) X10*6/uL Hgb 14.7 (14.0-18.0) g/dl Hct 44.5 (42.0-52.0) % MCV 81.1 (80.0-98.0) fL MCH 26.8 L (27.0-33.0) pg MCHC 33.0 (31.0-36.0) g/dl RDW 14.7 (11.0-16.0) % Plt Count 237 (160-400) X10*3/uL MPV 9.5 (9.4-12.4) fL Immature Gran % (Auto) 0.3 (0.0-0.4) % Neut % (Auto) 58.0 (45-73) % Lymph % (Auto) 30.7 (20-40) % [place] % (Auto) 7.7 (2-11) % Eos % (Auto) 2.8 (0-4) % Baso % (Auto) 0.5 (0-2) % Lymph # (Auto) 2.0 (1.2-4.9) X10*3/uL [place] # (Auto) 0.5 (0.1-1.2) X10*3/uL Eos # (Auto) 0.2 (0.0-0.4) X10*3/uL Baso # (Auto) 0.0 (0.0-0.2) X10*3/uL Abs Immat Gran (auto) 0.02 (0.00-0.03) X10*3/uL Absolute Neuts (auto) 3.7 (2.0-8.3) x10*3/uL Absolute Nucleated RBC 0.000 (0.0-0.012) X10*3/uL Nucleated RBC % (auto) 0.0 (0.0-0.2) /100WBC Sodium 138 (135-145) mmol/L Potassium 4.4 (3.3-5.1) mmol/L Chloride 109 H (96-108) mmol/L Carbon Dioxide 24 (22-29) mmol/L Anion Gap 9 L (12-20) BUN 10 (9-16) mg/dL Creatinine 0.82 (0.5-1.4) mg/dL Estim Creat Clear Calc 158.7 Estimated GFR > 60 Random Glucose 115 (60-115) mg/dL Calcium 9.4 (8.4-10.2) mg/dL Total Bilirubin 0.2 (0.0-1.0) mg/dL AST 37 (5-37) U/L ALT 45 H (0-40) U/L Alkaline Phosphatase 57 (39-117) U/L Total Protein 6.9 (6.5-8.0) g/dL Albumin 4.0 (3.5-5.0) g/dL Urine Color Yellow Urine Appearance Clear Urine pH 8.0 (5.0-9.0) Ur Specific [place] 1.020 (1.005-1.025) Urine Protein Negative (Neg-Trace) mg/dL Urine Glucose (UA) Negative (Negative) mg/dL Urine Ketones Negative (Negative) mg/dL Urine Blood Negative (Negative) Urine Nitrite Negative (Negative) Ur Leukocyte Esterase Negative (Negative) Salicylates < 5.0 L (15-30) mg/dL Urine Opiates Screen Not Detected (Not Detect) Ur Buprenorphine Scrn Not Detected (Not Detect) ng/mL Ur Oxycodone Screen Not Detected (Not Detect) ng/mL Urine Methadone Screen Not Detected (Not Detect) ng/mL Urine Fentanyl Screen Not Detected (Not Detect) Acetaminophen < 3 (<30) mcg/mL Ur Barbiturates Screen Not Detected (Not Detect) Ur Phencyclidine Scrn Not Detected (Not Detect) Ur Amphetamines Screen Not Detected (Not Detect) U Benzodiazepines Scrn Not Detected (Not Detect) Urine Cocaine Screen Not Detected (Not Detect) U Marijuana (THC) Screen Not Detected (Not Detect) Ethyl Alcohol < 10 mg/dL Influenza Type A (PCR) NEGATIVE (Negative) Influenza Type B (PCR) NEGATIVE (Negative) RSV RNA Qual (PCR) NEGATIVE (Negative) SARS-CoV-2 RNA (RT-PCR) NEGATIVE (Negative) External Record Review External record reviewed: Inpatient record, Office record and Outpatient record Discharge Plan Discharge Clinical Impression: Delusions Patient Disposition: Still a Patient Prescriptions: No Action omeprazole 20 mg capsule,delayed release(DR/EC) 20 mg PO DAILY Qty: 14 0RF meloxicam 15 mg tablet 15 mg PO DAILY Qty: 14 0RF Print Language: Lao
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
[2024-12-04 12:48] LABS: MANUAL DIFF FLAG NO
[2024-12-04 12:51] LABS: Basophils Percent Auto 0.5 % (0-2); Eosinophils Absolute Auto 0.2 X10*3/uL (0.0-0.4); Eosinophils Percent Auto 2.8 % (0-4); Hematocrit 44.5 % (42.0-52.0); Hemoglobin 14.7 g/dl (14.0-18.0); Imm Gran Abs Auto 0.02 X10*3/uL (0.00-0.03); Imm Gran Pct Auto 0.3 % (0.0-0.4); Lymphocytes Percent Auto 30.7 % (20-40); Mean Corpuscular Hemoglobin 26.8 pg (27.0-33.0); Mean Corpuscular Volume 81.1 fL (80.0-98.0); Mean Platelet Volume 9.5 fL (9.4-12.4); Monocytes Absolute Auto 0.5 X10*3/uL (0.1-1.2); Monocytes Percent Auto 7.7 % (2-11); Neutrophils Absolute Auto 3.7 x10*3/uL (2.0-8.3); Platelet Count 237 X10*3/uL (160-400); Red Blood Count 5.49 X10*6/uL (4.60-5.80); Red Cell Distribution Width 14.7 % (11.0-16.0); White Blood Count 6.4 X10*3/uL (4.8-10.8)
[2024-12-04 13:07] LABS: Acetaminophen LAB < 3 mcg/mL (<30); Salicylate < 5.0 mg/dL (15-30)
[2024-12-04 13:10] LABS: Alanine Aminotransferase 45 U/L (0-40); Alkaline Phosphatase 57 U/L (39-117); Anion Gap 9 (12-20); Aspartate Amino Transferase 37 U/L (5-37); Bilirubin Total 0.2 mg/dL (0.0-1.0); Blood Urea Nitrogen 10 mg/dL (9-16); Calcium 9.4 mg/dL (8.4-10.2); Carbon Dioxide 24 mmol/L (22-29); Chloride 109 mmol/L (96-108); Creatinine Clr Calc Pharmacy 158.7; Estimated Glomerular Filt Rate > 60; Ethanol < 10 mg/dL; Glucose Random 115 mg/dL (60-115); Potassium 4.4 mmol/L (3.3-5.1); Sodium 138 mmol/L (135-145); Total Protein 6.9 g/dL (6.5-8.0)
[2024-12-04 13:17] LABS: Color Urine Yellow; Glucose Urine UA Negative (Negative); Leukocyte Esterase Urine Negative (Negative); Nitrite Urine Negative (Negative); Urine Blood Negative (Negative); Urine Ketones Negative (Negative); Urine Protein Negative (Neg-Trace)
[2024-12-04 13:18] LABS: Appearance Urine Clear
[2024-12-04 13:37] LABS: Amphetamine Screen Urine Not Detected (Not Detect); Barbiturates, Urine Not Detected (Not Detect); Benzodiazepines Screen Urine Not Detected (Not Detect); Buprenorphine Scr Not Detected (Not Detect); Cannabinoid Screen Urine Not Detected (Not Detect); Cocaine Screen Urine Not Detected (Not Detect); Fentanyl, urine Not Detected (Not Detect); Methadone Screen, Urine Not Detected (Not Detect); Opiate Screen Urine Not Detected (Not Detect); Oxycodone Screen Urine Not Detected (Not Detect); Phencyclidine Screen Urine Not Detected (Not Detect)
[2024-12-04 13:59] LABS: Influenza A PCR NEGATIVE (Negative); Influenza B PCR NEGATIVE (Negative); Resp Syncy Virus RNA Qual PCR NEGATIVE (Negative); SARS COV2 PCR INHOUSE NEGATIVE (Negative)
--- NOTE | 2024-12-04 14:43 | MHC.CARE ---
Pt meets the criteria for IPLOC and will be an inpatient psychiatric bed search. Section 12a in chart. Provider in agreement.
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
[2024-12-04 20:32] VITALS: RESP 16
[2024-12-04 23:01] VITALS: BMI 35.7
[2024-12-04 23:02] VITALS: BP 126/90; PULSE 77; RESP 15; TEMP 36.8; O2SAT 98
--- NOTE | 2024-12-04 23:34 | PC.NURSE ---
Pt declined to receive flu vaccine at this time.
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
[2024-12-05 07:53] VITALS: BP 126/75; PULSE 64; RESP 16; TEMP 36.9; O2SAT 96
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
[2024-12-05 11:34] LABS: Estimated Average Glucose 128 mg/dL; Hemoglobin A1C 172.3713 umol/L; Hemoglobin A1c % 6.1 % (<6.0); Total Hemoglobin (HGBA1C) 3982.7515 umol/L
[2024-12-05 11:50] LABS: Cholesterol 227 mg/dL (<200); HDL Cholesterol 42 mg/dL (>40); LDL Cholesterol Calculated 117 mg/dL (<100); Magnesium 2.2 mg/dL (1.6-2.6); Triglycerides 342 mg/dL (<150)
[2024-12-05 12:07] LABS: Thyroid Stimulating Hormone 2.28 uIU/mL (0.32-4.0)
[2024-12-05 12:20] LABS: Folate 11.3 ng/mL (> or = 4.0); Vitamin B12 350 pg/mL (200-900)
[2024-12-05 20:00] VITALS: BP 137/78; PULSE 65; RESP 16; TEMP 36.9; O2SAT 99
[2024-12-06 08:00] VITALS: BP 107/55; PULSE 57; RESP 14; TEMP 36.4; O2SAT 97
--- NOTE | 2024-12-06 09:53 | P.PNPSI_ITS ---
Subjective Subjective Date of Service: 12/06/24 Reason For Visit: Psychosis Subjective Notes: Section 12B Healthcare Proxy: No Guardianship: No Medical Problems Affecting Mental Status: No Interim History: Patient was seen and discussed in rounds today. Records and plans were reviewed. He continues to be paranoid and quite delusional. He refused neuroleptics. No behavioral issues on the unit. Eating and sleeping adequately. Again we discussed medication and he is still quite on interested. No changes were made today Review of Systems Review of Systems Yes all other systems are reviewed and are negative Mental Status Exam Mental Status Exam Narrative: In today's visit, he is alert, oriented and cooperative. Speech is somewhat pressured but able to be interrupted. Good eye contact. Affect is appropriate, intense. He denies any SI/HI. He denies AVH. He has a lot of paranoid ideations and delusions. No gross cognitive deficits. Judgment is impaired secondary to his delusions. He is able to move all limbs. No gait abnormalities. Diagnostics Vital Signs (24Hr): Vital Signs - 24 hr 12/05/24 20:00 12/06/24 08:00 Temperature 98.5 F 97.5 F Pulse Rate 65 57 Respiratory Rate 16 14 Blood Pressure 137/78 107/55 L Pulse Oximetry 99 97 Oxygen Delivery Method Room Air Room Air BMI result Body Mass Index 35.7 Labs 12/04/24 12:43 12/04/24 12:43 Labs: Laboratory Results - last 48 hr 12/04/24 12/04/24 12/04/24 12:43 12:52 12:57 WBC 6.4 RBC 5.49 Hgb 14.7 Hct 44.5 MCV 81.1 MCH 26.8 L MCHC 33.0 RDW 14.7 Plt Count 237 MPV 9.5 Immature Gran % (Auto) 0.3 Neut % (Auto) 58.0 Lymph % (Auto) 30.7 [place] % (Auto) 7.7 Eos % (Auto) 2.8 Baso % (Auto) 0.5 Lymph # (Auto) 2.0 [place] # (Auto) 0.5 Eos # (Auto) 0.2 Baso # (Auto) 0.0 Abs Immat Gran (auto) 0.02 Absolute Neuts (auto) 3.7 Absolute Nucleated RBC 0.000 Nucleated RBC % (auto) 0.0 Sodium 138 Potassium 4.4 Chloride 109 H Carbon Dioxide 24 Anion Gap 9 L BUN 10 Creatinine 0.82 Estim Creat Clear Calc 158.7 Estimated GFR > 60 Random Glucose 115 Estimat Average Glucose Hemoglobin A1c % Calcium 9.4 Magnesium Total Bilirubin 0.2 AST 37 ALT 45 H Alkaline Phosphatase 57 Total Protein 6.9 Albumin 4.0 Triglycerides Cholesterol LDL Cholesterol, Calc HDL Cholesterol Vitamin B12 Folate TSH Free T4 Urine Color Yellow Urine Appearance Clear Urine pH 8.0 Ur Specific [place] 1.020 Urine Protein Negative Urine Glucose (UA) Negative Urine Ketones Negative Urine Blood Negative Urine Nitrite Negative Ur Leukocyte Esterase Negative Salicylates < 5.0 L Urine Opiates Screen Not Detected Ur Buprenorphine Scrn Not Detected Ur Oxycodone Screen Not Detected Urine Methadone Screen Not Detected Urine Fentanyl Screen Not Detected Acetaminophen < 3 Ur Barbiturates Screen Not Detected Ur Phencyclidine Scrn Not Detected Ur Amphetamines Screen Not Detected U Benzodiazepines Scrn Not Detected Urine Cocaine Screen Not Detected U Marijuana (THC) Screen Not Detected Ethyl Alcohol < 10 Influenza Type A (PCR) NEGATIVE Influenza Type B (PCR) NEGATIVE RSV RNA Qual (PCR) NEGATIVE SARS-CoV-2 RNA (RT-PCR) NEGATIVE 12/05/24 11:05 WBC RBC Hgb Hct MCV MCH MCHC RDW Plt Count MPV Immature Gran % (Auto) Neut % (Auto) Lymph % (Auto) [place] % (Auto) Eos % (Auto) Baso % (Auto) Lymph # (Auto) [place] # (Auto) Eos # (Auto) Baso # (Auto) Abs Immat Gran (auto) Absolute Neuts (auto) Absolute Nucleated RBC Nucleated RBC % (auto) Sodium Potassium Chloride Carbon Dioxide Anion Gap BUN Creatinine Estim Creat Clear Calc Estimated GFR Random Glucose Estimat Average Glucose 128 Hemoglobin A1c % 6.1 H Calcium Magnesium 2.2 Total Bilirubin AST ALT Alkaline Phosphatase Total Protein Albumin Triglycerides 342 H Cholesterol 227 H LDL Cholesterol, Calc 117 H HDL Cholesterol 42 Vitamin B12 350 Folate 11.3 TSH 2.28 Free T4 1.00 Urine Color Urine Appearance Urine pH Ur Specific [place] Urine Protein Urine Glucose (UA) Urine Ketones Urine Blood Urine Nitrite Ur Leukocyte Esterase Salicylates Urine Opiates Screen Ur Buprenorphine Scrn Ur Oxycodone Screen Urine Methadone Screen Urine Fentanyl Screen Acetaminophen Ur Barbiturates Screen Ur Phencyclidine Scrn Ur Amphetamines Screen U Benzodiazepines Scrn Urine Cocaine Screen U Marijuana (THC) Screen Ethyl Alcohol Influenza Type A (PCR) Influenza Type B (PCR) RSV RNA Qual (PCR) SARS-CoV-2 RNA (RT-PCR) Medications Medications Current Medications Acetaminophen (Acetaminophen 325 Mg Tablet) 650 mg PO Q6H PRN PRN Reason: Headache/Pain, Scale 1-10 Al Hydroxide/Mg Hydroxide (Magnesium Hydrox/Alum Hydrox 30 Ml Oral.Susp) 30 ml PO Q6H PRN PRN Reason: Heartburn/Nausea Haloperidol (Haloperidol 5 Mg Tablet) 5 mg PO Q4H PRN PRN Reason: psychosis Hydroxyzine HCl (Hydroxyzine Hcl 25 Mg Tablet) 25 mg PO Q6H PRN PRN Reason: mild anxiety Magnesium Hydroxide (Milk Of Magnesia 30 Ml Oral.Susp) 30 ml PO DAILY PRN PRN Reason: Constipation Nicotine Polacrilex (Nicotine Polacrilex 2 Mg Gum) 4 mg BUCCAL Q2H PRN PRN Reason: Nicotine Cravings Olanzapine (Olanzapine Odt 10 Mg Tab.Rapdis) 10 mg TRANSLINGU BID ELLIOT Last Admin: 12/06/24 09:51 Dose: Not Given Trazodone HCl (Trazodone Hcl 50 Mg Tablet) 50 mg PO BEDTIME MRX1 PRN PRN Reason: Insomnia Allergies Allergies Allergy/AdvReac Type Severity Reaction Status Date / Time No Known Allergies Allergy Verified 12/04/24 11:31 Assessment & Plan Assessment & Plan (1) Delusions: Status: Acute Code(s): F22 - Delusional disorders Plan Patient meets criteria for IP LOC for safety and stabilization. Admission workup reviewed. He is here on a Section 12B. I discuss options of medications but he is not interested. I will order Zyprexa 10 mg q.h.s. for now. Side effects reviewed. 12/06: Continue current regimen and plans. Patient educated on: diagnosis and medication risk/benefits Reason for continued inpatient stay Substantial Risk for: med/psych decompensation Time Spent With Patient Time: Total time managing care of this patient today ____ minutes.
[2024-12-06 20:20] VITALS: RESP 16
[2024-12-07 08:00] VITALS: BP 123/68; PULSE 65; RESP 16; TEMP 36.9; O2SAT 99
--- NOTE | 2024-12-07 09:07 | HO.PSYCHPN ---
Subjective Subjective Date of Service: 12/07/24 Reason For Visit: Psychosis Subjective Notes: Section 12B Healthcare Proxy: No Guardianship: No Medical Problems Affecting Mental Status: No Interim History: Patient was seen and discussed in rounds today. Records and plans were reviewed. He has been calm and cooperative on the unit. Refusing medications and continues to be puzzled as to why he is here. He continues to be paranoid and delusional and has no insight into his difficulties. No SI. Eating and sleeping adequately. Review of Systems Review of Systems Yes all other systems are reviewed and are negative Mental Status Exam Mental Status Exam Narrative: In today's visit, he is alert, oriented and cooperative. Speech is somewhat pressured but able to be interrupted. Good eye contact. Affect is appropriate, intense. He denies any SI/HI. He denies AVH. He has a lot of paranoid ideations and delusions. No gross cognitive deficits. Judgment is impaired secondary to his delusions. He is able to move all limbs. No gait abnormalities. Diagnostics Vital Signs (24Hr): Vital Signs - 24 hr 12/06/24 20:20 12/07/24 08:00 Temperature 98.4 F Pulse Rate 65 Respiratory Rate 16 16 Blood Pressure 123/68 Pulse Oximetry 99 Oxygen Delivery Method Room Air BMI result Body Mass Index 35.7 Labs 12/04/24 12:43 12/04/24 12:43 Labs: Laboratory Results - last 48 hr 12/05/24 11:05 Estimat Average Glucose 128 Hemoglobin A1c % 6.1 H Magnesium 2.2 Triglycerides 342 H Cholesterol 227 H LDL Cholesterol, Calc 117 H HDL Cholesterol 42 Vitamin B12 350 Folate 11.3 TSH 2.28 Free T4 1.00 Medications Medications Current Medications Acetaminophen (Acetaminophen 325 Mg Tablet) 650 mg PO Q6H PRN PRN Reason: Headache/Pain, Scale 1-10 Al Hydroxide/Mg Hydroxide (Magnesium Hydrox/Alum Hydrox 30 Ml Oral.Susp) 30 ml PO Q6H PRN PRN Reason: Heartburn/Nausea Haloperidol (Haloperidol 5 Mg Tablet) 5 mg PO Q4H PRN PRN Reason: psychosis Hydroxyzine HCl (Hydroxyzine Hcl 25 Mg Tablet) 25 mg PO Q6H PRN PRN Reason: mild anxiety Magnesium Hydroxide (Milk Of Magnesia 30 Ml Oral.Susp) 30 ml PO DAILY PRN PRN Reason: Constipation Nicotine Polacrilex (Nicotine Polacrilex 2 Mg Gum) 4 mg BUCCAL Q2H PRN PRN Reason: Nicotine Cravings Olanzapine (Olanzapine Odt 10 Mg Tab.Rapdis) 10 mg TRANSLINGU BID ELLIOT Last Admin: 12/07/24 08:54 Dose: Not Given Trazodone HCl (Trazodone Hcl 50 Mg Tablet) 50 mg PO BEDTIME MRX1 PRN PRN Reason: Insomnia Allergies Allergies Allergy/AdvReac Type Severity Reaction Status Date / Time No Known Allergies Allergy Verified 12/04/24 11:31 Assessment & Plan Assessment & Plan (1) Delusions: Status: Acute Code(s): F22 - Delusional disorders Plan Patient meets criteria for IP LOC for safety and stabilization. Admission workup reviewed. He is here on a Section 12B. I discuss options of medications but he is not interested. I will order Zyprexa 10 mg q.h.s. for now. Side effects reviewed. 12/06: Continue current regimen and plans. 12/07: Continue current regimen and plans Patient educated on: medication risk/benefits Reason for continued inpatient stay Substantial Risk for: med/psych decompensation Time Spent With Patient Time: Total time managing care of this patient today ____ minutes.
[2024-12-07 20:00] VITALS: BP 127/79; PULSE 66; RESP 16; TEMP 36.8; O2SAT 98
[2024-12-08 07:52] VITALS: BP 114/59; PULSE 67; RESP 18; TEMP 36.9; O2SAT 96
--- NOTE | 2024-12-08 17:55 | P.PNPSI_ITS ---
Subjective Subjective Date of Service: 12/08/24 Reason For Visit: Psychosis Interim History: pleasant, cooperative, calm. denies mental illness. refusing medications. denies safety concerns or psychotic Sx. referring to his time in the , aware some people don't believe him and he shouldn't talk about that in front of just anyone. Mental Status Exam Mental Status Exam Narrative: In today's visit, he is alert, oriented and cooperative. Speech is nml amount, rate, loudness, latency. Good eye contact. Affect is appropriate, normo- intense. He denies any SI/HI. He denies AVH. He has a lot of paranoid ideations and delusions. No gross cognitive deficits. Judgment is impaired secondary to his delusions. He is able to move all limbs. No gait abnormalities. Diagnostics Vital Signs (24Hr): Vital Signs - 24 hr 12/07/24 20:00 12/08/24 07:52 Temperature 98.3 F 98.4 F Pulse Rate 66 67 Respiratory Rate 16 18 Blood Pressure 127/79 114/59 L Pulse Oximetry 98 96 Oxygen Delivery Method Room Air Room Air BMI result Body Mass Index 35.7 Labs 12/04/24 12:43 12/04/24 12:43 Medications Medications Current Medications Acetaminophen (Acetaminophen 325 Mg Tablet) 650 mg PO Q6H PRN PRN Reason: Headache/Pain, Scale 1-10 Al Hydroxide/Mg Hydroxide (Magnesium Hydrox/Alum Hydrox 30 Ml Oral.Susp) 30 ml PO Q6H PRN PRN Reason: Heartburn/Nausea Haloperidol (Haloperidol 5 Mg Tablet) 5 mg PO Q4H PRN PRN Reason: psychosis Hydroxyzine HCl (Hydroxyzine Hcl 25 Mg Tablet) 25 mg PO Q6H PRN PRN Reason: mild anxiety Magnesium Hydroxide (Milk Of Magnesia 30 Ml Oral.Susp) 30 ml PO DAILY PRN PRN Reason: Constipation Nicotine Polacrilex (Nicotine Polacrilex 2 Mg Gum) 4 mg BUCCAL Q2H PRN PRN Reason: Nicotine Cravings Olanzapine (Olanzapine Odt 10 Mg Tab.Rapdis) 10 mg TRANSLINGU BID ELLIOT Last Admin: 12/08/24 08:44 Dose: Not Given Trazodone HCl (Trazodone Hcl 50 Mg Tablet) 50 mg PO BEDTIME MRX1 PRN PRN Reason: Insomnia Allergies Allergies Allergy/AdvReac Type Severity Reaction Status Date / Time No Known Allergies Allergy Verified 12/04/24 11:31 Assessment & Plan Assessment & Plan (1) Delusions: Status: Acute Code(s): F22 - Delusional disorders Plan Patient meets criteria for IP LOC for safety and stabilization. Admission workup reviewed. He is here on a Section 12B. I discuss options of medications but he is not interested. I will order Zyprexa 10 mg q.h.s. for now. Side effects reviewed. 12/06: Continue current regimen and plans. 12/07: Continue current regimen and plans 12/08: refusing medications. delusional. denies mental illness. calm and cooperative. continue current mgmt. Reason for continued inpatient stay Substantial Risk for: inability to function Time Spent With Patient Time: Total time managing care of this patient today _25___ minutes.
[2024-12-08 20:00] VITALS: BP 132/73; PULSE 68; RESP 16; TEMP 36.7; O2SAT 99
[2024-12-08] MEDS: Nicotine Polacrilex 2 MG GUM 4 MG BUCCAL (21:33)
[2024-12-09 12:00] VITALS: BP 123/76; PULSE 66; RESP 18; TEMP 37.1; O2SAT 96
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
--- NOTE | 2024-12-09 17:03 | PC.NURSE ---
12/09/24 When RN walked into the kitchen pt was speaking loudly into the common area If I am not let out of here soon Nadia start grabbing butts. This RNs are going to see what will happen if I am not let go. Pt redirected, pt went to room.
[2024-12-09 20:00] VITALS: BP 131/88; PULSE 70; RESP 20; TEMP 36.7; O2SAT 98
[2024-12-09] MEDS: Milk of Magnesia 30 ML ORAL.SUSP PO (21:53)
[2024-12-10 07:30] VITALS: BP 111/64; PULSE 62; RESP 14; TEMP 36.8; O2SAT 98
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
== END 2024-12-10 10:13 | disposition home or self-care (01) | DRG 750 ==
LOC: HO.ED 13:46 → HO.PADLT16 20:42
PROVIDERS: Registered Nurse Emergency; Admitting Provider Clinical Nurse Specialist Psychiatric/Mental Health, Adult; Emergency Provider Emergency Medicine; Visit Provider Clinical Nurse Specialist Psychiatric/Mental Health, Adult
DX: F20.9 Schizophrenia, unspecified (principal); F17.210 Nicotine dependence, cigarettes, uncomplicated; Z20.822 Contact with and (suspected) exposure to COVID-19; Z71.6 Tobacco abuse counseling; Z87.820 Personal history of traumatic brain injury
CPT/HCPCS: 0241U; 36415; 80053; 80061; 80143; 80179; 80307; 81003; 82607; 82746; 83036; 83735; 84439; 84443; 85025; 99285; S9485

== ENCOUNTER → 2024-12-04 20:33 | Outpatient (BNV) | payer OTHER, SELFPAY | PROVIDERS: Admitting Provider Clinical Nurse Specialist Psychiatric/Mental Health, Adult; Emergency Provider Emergency Medicine; Visit Provider Psychiatry & Neurology Psychiatry | DX: F20.9 Schizophrenia, unspecified (principal); F22 Delusional disorders | CPT/HCPCS: 99231; 99232 ==

== ENCOUNTER 2025-03-09 06:02 | Inpatient (IN) | payer OTHER, SELFPAY ==
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
[2025-03-09 06:06] VITALS: BMI 40.0
[2025-03-09 06:25] VITALS: BP 149/114; PULSE 112; RESP 24; TEMP 36.6; O2SAT 97
[2025-03-09 06:47] LABS: MANUAL DIFF FLAG NO
[2025-03-09 06:49] LABS: Basophils Percent Auto 0.3 % (0-2); Eosinophils Absolute Auto 0.2 X10*3/uL (0.0-0.4); Eosinophils Percent Auto 2.3 % (0-4); Hematocrit 42.6 % (42.0-52.0); Hemoglobin 14.1 g/dl (14.0-18.0); Imm Gran Abs Auto 0.03 X10*3/uL (0.00-0.03); Imm Gran Pct Auto 0.4 % (0.0-0.4); Lymphocytes Absolute Auto 2.8 X10*3/uL (1.2-4.9); Lymphocytes Percent Auto 37.1 % (20-40); Mean Corpuscular HGB Conc 33.1 g/dl (31.0-36.0); Mean Corpuscular Hemoglobin 27.4 pg (27.0-33.0); Mean Corpuscular Volume 82.9 fL (80.0-98.0); Mean Platelet Volume 10.2 fL (9.4-12.4); Monocytes Absolute Auto 0.4 X10*3/uL (0.1-1.2); Monocytes Percent Auto 5.5 % (2-11); Neutrophils Absolute Auto 4.1 x10*3/uL (2.0-8.3); Neutrophils Percent Auto 54.4 % (45-73); Platelet Count 251 X10*3/uL (160-400); Red Blood Count 5.14 X10*6/uL (4.60-5.80); Red Cell Distribution Width 14.9 % (11.0-16.0); White Blood Count 7.5 X10*3/uL (4.8-10.8)
--- NOTE | 2025-03-09 06:55 | PC.NURSE ---
On arrival to ED patient was verbally aggressive towards staff, however complaint with address change clerk, labs draw. Per EMS, patient expressed SI and HI and arrived to ED sec 12 by Alison PATTERSON. Patient denies SI/HI at present, awaiting to be seen by care team. Patient has house arrest ankle monitor to left ankle.
[2025-03-09 07:06] LABS: Anion Gap 15 (12-20); Blood Urea Nitrogen 11 mg/dL (9-16); Calcium 9.1 mg/dL (8.4-10.2); Carbon Dioxide 20 mmol/L (22-29); Chloride 107 mmol/L (96-108); Creatinine Clr Calc Pharmacy 108.1; Estimated Glomerular Filt Rate > 60; Ethanol < 10 mg/dL; Glucose Random 266 mg/dL (60-115); Potassium 3.8 mmol/L (3.3-5.1); Sodium 138 mmol/L (135-145)
[2025-03-09 07:07] LABS: Amphetamine Screen Urine Not Detected (Not Detect); Barbiturates, Urine Not Detected (Not Detect); Benzodiazepines Screen Urine Not Detected (Not Detect); Buprenorphine Scr Not Detected (Not Detect); Cannabinoid Screen Urine Not Detected (Not Detect); Cocaine Screen Urine Not Detected (Not Detect); Fentanyl, urine Not Detected (Not Detect); Methadone Screen, Urine Not Detected (Not Detect); Opiate Screen Urine Not Detected (Not Detect); Oxycodone Screen Urine Not Detected (Not Detect); Phencyclidine Screen Urine Not Detected (Not Detect)
--- OUTSIDE RECORDS SUMMARY | 2025-03-09 07:19 | XMS_ITS | Continuity of Care Document ---
Author Organization [facility] Address [address] [place] [phone] Phone Care Team Providers Care Chief Recordist Name Role Phone Minna Oviedo MD Unavailable [...] by insurance Procedures Procedure Date OFFICE/OUTPATIENT VISIT, [facility] Advance Directives Directive Yes / No Effective [...] Visit Diagnoses Date Provider OFFICE/OUTPATIE NT VISIT, [facility], [address] [place] [address], [facility], tel:[phone] [facility] Care Bris 10 NMS Other Pain (chief complaint)Co ld symptoms (chief complaint) Body mass index (BMI) 37.0-37.9, adultElevated blood-pressure reading, w/o diagnosis of htnAcute upper respiratory infection, unspecified [address] [place] [address], [id number], [place]. tel:[phone] As per patient privacy policy some of the clinical information may not be visible. Family History Family Member Type Diagnosis Age At Onset No Information Payers Payer name Insurance type Covered democrat ID Bharathi brewster(frederick Mckinney [id number] Social History Type Description Quantity Date Captured [...]
--- NOTE | 2025-03-09 07:31 | PC.NURSE ---
patient awake, alert to person/place, pt rapid flight of ideas- changing subjects quickly and unable to complete a thought process. pt has a left ankle bracelet, rr equal/non labored, currently not wanting to answer questions for this nurse. vitals previously stable, pt awaiting a care team eval. 1:1 sitter at bedside, pt section 12
--- NOTE | 2025-03-09 10:39 | MHC.EDTECH ---
pt very angry & refused BP , refused RR!
--- NOTE | 2025-03-09 11:38 | PC.NURSE ---
pt had increased agitation was yelling out, care team came to speak with the patient during this time, security also at bedside as well as Ariella our director and other staff. pt safety was maintained plan of care ongoing
[2025-03-09 11:40] VITALS: RESP 22
--- NOTE | 2025-03-09 13:06 | MHC.CARE ---
Pt will be an inpatient bedsearch.
[2025-03-09] MEDS: OLANZapine ODT 10 MG TAB.RAPDIS 20 MG TRANSLINGU (13:36)
--- NOTE | 2025-03-09 13:36 | PC.NURSE ---
pt agitated, uncooperative and screaming, security and Ariella at bedside, pt was agreeable to take PO medication. the patient took the PO medication but was unable to scan his wrist band.
[2025-03-09 14:05] VITALS: RESP 20
[2025-03-09] MEDS: diphenhydrAMINE HCL 50 MG/ML VIAL IM (14:25)
[2025-03-09] MEDS: Haloperidol Lactate 5 MG/ML VIAL 10 MG IM (14:25)
[2025-03-09] MEDS: diazePAM 10 MG/2 ML CARTRIDGE 5 MG IM (14:25)
[2025-03-09 15:04] VITALS: PULSE 82; RESP 17; O2SAT 95
[2025-03-09 15:10] VITALS: BP 138/68; PULSE 77; RESP 18; O2SAT 95
--- NOTE | 2025-03-09 17:30 | PC.NURSE ---
this afternoon pt was very agitated and risk for self harm and harming others, provider placed orders for physical/chemical restraints. all documentation was written on restraint forms, was safely able patients vitals were documented on the restraint sheet as well. pt currently sleeping, no longer restrained 1:1 sitter, vitals have been stable, rr equal/non labored.
--- NOTE | 2025-03-09 18:56 | PC.NURSE ---
this rn assumed care of pt, pt remains resting in stretcher, no acute distress noted. vss. all restraints off of pt at this time.
[2025-03-09 18:57] VITALS: BP 118/61; PULSE 66; RESP 20; O2SAT 98
--- NOTE | 2025-03-09 20:18 | PC.NURSE ---
attempted to do med rec with pt, pt unable to verify medications with this rn at this time.
[2025-03-10 06:08] VITALS: RESP 16
--- NOTE | 2025-03-10 07:13 | PC.NURSE ---
Assumed care of patient at 0645, patient appears to be in no apparent distress this am, laying in bed, rr even and unlabored. Continue plan of care for IPLOC
--- NOTE | 2025-03-10 10:48 | PC.NURSE ---
Patient refusing to do EKG, admissions team aware
--- NOTE | 2025-03-10 12:54 | PC.NURSE ---
Report given to Ondina OCONNOR
--- NOTE | 2025-03-10 13:13 | PHA.MEDREC ---
Pharmacy Consult ? Medication Reconciliation Pharmacy has reviewed the medication reconciliation completed by nursing.
--- NOTE | 2025-03-10 13:24 | PC.NURSE ---
pt remained withdrawn throughout morning, no conversing with staff, primarily sleeping
[2025-03-10 13:27] VITALS: BP 146/87; PULSE 97; RESP 18; TEMP 36.5; O2SAT 94
[2025-03-10 13:46] VITALS: BMI 25.3
--- NOTE | 2025-03-10 15:35 | PC.NURSE ---
Anjum signed a three day today, with Dilshad CROSS.
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
[2025-03-10 20:00] VITALS: BP 131/81; PULSE 97; RESP 18; TEMP 37.1; O2SAT 98
[2025-03-10] MEDS: OLANZapine ODT 10 MG TAB.RAPDIS TRANSLINGU (21:40)
[2025-03-10] MEDS: hydrOXYzine HCL 25 MG TABLET PO (21:40)
[2025-03-10] MEDS: traZODone HCL 50 MG TABLET PO (21:40)
[2025-03-11 08:23] VITALS: BP 128/71; PULSE 78; RESP 16; TEMP 36.4; O2SAT 97
--- NOTE | 2025-03-11 13:40 | P.PNPSI_ITS ---
Subjective Subjective Date of Service: 03/11/25 Reason For Visit: crisis Interim History: initially calm and cooperative. later as frustration grew loud, denigrating. denies mental illness, invested in delusions of role in [employer] security apparatus. educated re 3-day notice expiring next saturday. very elevated and angry after, yelling loudly in milieu. per staff, psychosis s/p TBI. ankle monitor. probation. IM meds/restraints in ED. grandiose, paranoid, delusional re being in the . poor sleep. slept 6.5 hours last night after having received a lot of PRNs. Mental Status Exam Mental Status Exam Narrative: Pt is alert and oriented; behavior is cooperative and calm initially, later agitated and angry; dressed in casual attire; mood is described as frustrated ; eye contact appropriate; Speech is rapid rate, loud volume and pressured; thought process is circumstantial; Thought content is on discharge; paranoid delusions, grandiose; no SI/HI/VH/AH expressed. Diagnostics Vital Signs (24Hr): Vital Signs - 24 hr 03/10/25 20:00 03/11/25 08:23 Temperature 98.7 F 97.6 F Pulse Rate 97 78 Respiratory Rate 18 16 Blood Pressure 131/81 128/71 Pulse Oximetry 98 97 Oxygen Delivery Method Room Air Room Air BMI result Body Mass Index 25.3 Labs 03/09/25 06:43 03/09/25 06:43 Medications Medications Current Medications Acetaminophen (Acetaminophen 325 Mg Tablet) 650 mg PO Q6H PRN PRN Reason: Headache/Pain, Scale 1-10 Al Hydroxide/Mg Hydroxide (Magnesium Hydrox/Alum Hydrox 30 Ml Oral.Susp) 30 ml PO Q6H PRN PRN Reason: Heartburn/Nausea Divalproex Sodium (Divalproex Sodium 500 Mg Tablet.) 1,000 mg PO BID [facility] Last Admin: 03/11/25 12:14 Dose: Not Given Hydroxyzine HCl (Hydroxyzine Hcl 25 Mg Tablet) 25 mg PO Q6H PRN PRN Reason: mild anxiety Last Admin: 03/10/25 21:40 Dose: 25 mg Magnesium Hydroxide (Milk Of Magnesia 30 Ml Oral.Susp) 30 ml PO DAILY PRN PRN Reason: Constipation Nicotine (Nicotine 21 Mg Patch.Td24) 21 mg TRANSDERMA DAILY [facility] Last Admin: 03/11/25 11:46 Dose: Not Given Nicotine Polacrilex (Nicotine Polacrilex 2 Mg Gum) 4 mg BUCCAL Q2H PRN PRN Reason: Nicotine Cravings Olanzapine (Olanzapine Odt 10 Mg Tab.Rapdis) 10 mg TRANSLINGU BID [facility] Last Admin: 03/11/25 12:14 Dose: Not Given Olanzapine (Olanzapine 5 Mg Tablet) 5 mg PO Q4H PRN PRN Reason: agitation Trazodone HCl (Trazodone Hcl 50 Mg Tablet) 50 mg PO BEDTIME MRX1 PRN PRN Reason: Insomnia Last Admin: 03/10/25 21:40 Dose: 50 mg Allergies Allergies Allergy/AdvReac Type Severity Reaction Status Date / Time No Known Allergies Allergy Verified 03/09/25 06:09 Assessment & Plan Assessment & Plan (1) Schizophrenia: Status: Acute Code(s): F20.9 - Schizophrenia, unspecified Plan Patient is a 40-year-old male with history of schizophrenia who arrived to ER via ambulance due to increased paranoia, delusions, and aggression secondary to treatment noncompliance. Plan: CV 15 minute safety checks Obtain collateral Start: Zyprexa 10mg BID Encourage treatment compliance Referral to outpatient psychiatric providers Discharge planning 03/11: manic. labile, irritable, grandiose delusions, impaired sleep. start VPA 1000 mg BID. taking zyprexa 10 BID. Reason for continued inpatient stay Substantial Risk for: harm to self, harm to others and inability to function Time Spent With Patient Time: Total time managing care of this patient today __35__ minutes.
[2025-03-11] MEDS: Divalproex Sodium 500 MG TABLET.DR 1000 MG PO ×2 (14:47→21:26)
[2025-03-11] MEDS: hydrOXYzine HCL 25 MG TABLET PO ×2 (14:48→21:26)
[2025-03-11] MEDS: OLANZapine 5 MG TABLET PO ×2 (14:48→21:26)
[2025-03-11] MEDS: Milk of Magnesia 30 ML ORAL.SUSP PO (17:32)
[2025-03-11 20:00] VITALS: RESP 18
[2025-03-11] MEDS: traZODone HCL 50 MG TABLET PO (21:26)
[2025-03-11] MEDS: OLANZapine ODT 10 MG TAB.RAPDIS TRANSLINGU (21:26)
--- NOTE | 2025-03-12 08:53 | P.PNPSI_ITS ---
Subjective Subjective Date of Service: 03/12/25 Reason For Visit: crisis Subjective Notes: 3 Day Interim History: Active on unit. Continues grandiose and delusional. Refusing medications in the morning, however compliant at night. Pt reports feeling frustrated d/t 3 day notice not being up until 03/16/25. Pt raising voice regarding psychiatrist who met with him yesterday. Pt stated, how is he going to tell me I didn't serve in the ?! I'm a General. He should be saying thank you for your service! . Pt observed later in shift, calmer and making phone calls. denies SI/HI/VH/AH. per nursing, slept 6 hours last night. Medication Compliance: Intermittent Side effects from medications: No Attending Groups: No Mental Status Exam Mental Status Exam Narrative: Pt is alert and oriented; behavior is cooperative and calm, frustrated when discussing meet with doctor yesterday; dressed in casual attire; mood is described as frustrated ; eye contact appropriate; Speech is rapid rate, loud volume and pressured; thought process is circumstantial; Thought content is on discharge; paranoid delusions, grandiose; denies SI/HI/VH/AH. Diagnostics Vital Signs (24Hr): Vital Signs - 24 hr 03/11/25 20:00 Respiratory Rate 18 BMI result Body Mass Index 25.3 Labs 03/09/25 06:43 03/09/25 06:43 Medications Medications Current Medications Acetaminophen (Acetaminophen 325 Mg Tablet) 650 mg PO Q6H PRN PRN Reason: Headache/Pain, Scale 1-10 Al Hydroxide/Mg Hydroxide (Magnesium Hydrox/Alum Hydrox 30 Ml Oral.Susp) 30 ml PO Q6H PRN PRN Reason: Heartburn/Nausea Divalproex Sodium (Divalproex Sodium 500 Mg Tablet.) 1,000 mg PO BID [facility] Last Admin: 03/11/25 21:26 Dose: 1,000 mg Hydroxyzine HCl (Hydroxyzine Hcl 25 Mg Tablet) 25 mg PO Q6H PRN PRN Reason: mild anxiety Last Admin: 03/11/25 21:26 Dose: 25 mg Magnesium Hydroxide (Milk Of Magnesia 30 Ml Oral.Susp) 30 ml PO DAILY PRN PRN Reason: Constipation Last Admin: 03/11/25 17:32 Dose: 30 ml Nicotine (Nicotine 21 Mg Patch.Td24) 21 mg TRANSDERMA DAILY ON LICENSE OF [facility] Last Admin: 03/11/25 11:46 Dose: Not Given Nicotine Polacrilex (Nicotine Polacrilex 2 Mg Gum) 4 mg BUCCAL Q2H PRN PRN Reason: Nicotine Cravings Olanzapine (Olanzapine Odt 10 Mg Tab.Rapdis) 10 mg TRANSLINGU BID ON [facility] OF [facility] Last Admin: 03/11/25 21:26 Dose: 10 mg Olanzapine (Olanzapine 5 Mg Tablet) 5 mg PO Q4H PRN PRN Reason: agitation Last Admin: 03/11/25 21:26 Dose: 5 mg Trazodone HCl (Trazodone Hcl 50 Mg Tablet) 50 mg PO BEDTIME MRX1 PRN PRN Reason: Insomnia Last Admin: 03/11/25 21: Dose: 50 mg Allergies Allergies Allergy/AdvReac Type Severity Reaction Status Date / Time No Known Allergies Allergy Verified 03/09/25 06:09 Assessment & Plan Assessment & Plan (1) Schizophrenia: Status: Acute Code(s): F20.9 - Schizophrenia, unspecified Plan Patient is a 40-year-old male with history of schizophrenia who arrived to ER via ambulance due to increased paranoia, delusions, and aggression secondary to treatment noncompliance. Plan: CV 15 minute safety checks Obtain collateral Start: Zyprexa 10mg BID Encourage treatment compliance Referral to outpatient psychiatric providers Discharge planning 03/11: manic. labile, irritable, grandiose delusions, impaired sleep. start VPA 1000 mg BID. taking zyprexa 10 BID. 03/12: Active on unit. Continues grandiose and delusional. Refusing medications in the morning, however compliant at night. Pt reports feeling frustrated d/t 3 day notice not being up until 03/16/25. Pt raising voice regarding psychiatrist who met with him yesterday. Pt stated, how is he going to tell me I didn't serve in the ?! I'm a General. He should be saying thank you for your service! . Pt observed later in shift, calmer and making phone calls. denies SI/HI/VH/AH. per nursing, slept 6 hours last night. Patient educated on: diagnosis and medication risk/benefits Reason for continued inpatient stay Substantial Risk for: med/psych decompensation Time Spent With Patient Time: Total time managing care of this patient today _20___ minutes.
--- NOTE | 2025-03-12 13:04 | PC.NURSE ---
Patient was offered his scheduled medications multiple times throughout the morning. Patient laughed at this nurse and shook his head when initially offered in the morning. When attempted again in the afternoon patient walked away from this nurse, visibly upset. Provider Dilshad CROSS notified in person.
[2025-03-12 19:20] VITALS: BP 142/84; PULSE 79; RESP 18; TEMP 37.1; O2SAT 96
[2025-03-12] MEDS: hydrOXYzine HCL 25 MG TABLET PO (20:26)
[2025-03-12] MEDS: traZODone HCL 50 MG TABLET PO ×2 (20:26→21:48)
[2025-03-12] MEDS: Divalproex Sodium 500 MG TABLET.DR 1000 MG PO (20:26)
[2025-03-12] MEDS: OLANZapine ODT 10 MG TAB.RAPDIS TRANSLINGU (20:26)
[2025-03-12] MEDS: OLANZapine 5 MG TABLET PO (21:48)
[2025-03-13 08:00] VITALS: BP 119/65; PULSE 73; RESP 16; TEMP 36.9; O2SAT 96
[2025-03-13] MEDS: OLANZapine ODT 10 MG TAB.RAPDIS TRANSLINGU ×2 (08:55→20:36)
[2025-03-13] MEDS: Divalproex Sodium 500 MG TABLET.DR 1000 MG PO ×2 (08:56→20:36)
--- NOTE | 2025-03-13 14:54 | P.PNPSI_ITS ---
Subjective Subjective Date of Service: 03/13/25 Reason For Visit: crisis Subjective Notes: 3 Day Interim History: Sleeping most of the morning. keeping to self. calmer today. did not make any delusional statements during interaction. Patient states he doesn't need anything right now . denies SI/HI/VH/AH. encouraged to attend groups. Continue current tx plan. Medication Compliance: Intermittent Side effects from medications: No Attending Groups: No Mental Status Exam Mental Status Exam Narrative: Pt is alert and oriented; behavior is cooperative and calm; dressed in casual attire; mood is described as fine ; eye contact appropriate; Speech is normal rate, volume and not pressured; thought process is organized; Thought content is on discharge; did not make delusional statements during assessment today; denies SI/HI/VH/AH. Diagnostics Vital Signs (24Hr): Vital Signs - 24 hr 03/12/25 19:20 03/13/25 08:00 Temperature 98.7 F 98.4 F Pulse Rate 79 73 Respiratory Rate 18 16 Blood Pressure 142/84 H 119/65 Pulse Oximetry 96 96 Oxygen Delivery Method Room Air Room Air BMI result Body Mass Index 25.3 Labs 03/09/25 06:43 03/09/25 06:43 Medications Medications Current Medications Acetaminophen (Acetaminophen 325 Mg Tablet) 650 mg PO Q6H PRN PRN Reason: Headache/Pain, Scale 1-10 Al Hydroxide/Mg Hydroxide (Magnesium Hydrox/Alum Hydrox 30 Ml Oral.Susp) 30 ml PO Q6H PRN PRN Reason: Heartburn/Nausea Divalproex Sodium (Divalproex Sodium 500 Mg Tablet.) 1,000 mg PO BID [facility] Last Admin: 03/13/25 08:56 Dose: 1,000 mg Hydroxyzine HCl (Hydroxyzine Hcl 25 Mg Tablet) 25 mg PO Q6H PRN PRN Reason: mild anxiety Last Admin: 03/12/25 20:26 Dose: 25 mg Magnesium Hydroxide (Milk Of Magnesia 30 Ml Oral.Susp) 30 ml PO DAILY PRN PRN Reason: Constipation Last Admin: 03/11/25 17:32 Dose: 30 ml Nicotine Polacrilex (Nicotine Polacrilex 2 Mg Gum) 4 mg BUCCAL Q2H PRN PRN Reason: Nicotine Cravings Olanzapine (Olanzapine Odt 10 Mg Tab.Rapdis) 10 mg TRANSLINGU BID [facility] Last Admin: 03/13/25 08:55 Dose: 10 mg Olanzapine (Olanzapine 5 Mg Tablet) 5 mg PO Q4H PRN PRN Reason: agitation Last Admin: 03/12/25 21:48 Dose: 5 mg Trazodone HCl (Trazodone Hcl 50 Mg Tablet) 50 mg PO BEDTIME MRX1 PRN PRN Reason: Insomnia Last Admin: 03/12/25 21:48 Dose: 50 mg Allergies Allergies Allergy/AdvReac Type Severity Reaction Status Date / Time No Known Allergies Allergy Verified 03/09/25 06:09 Assessment & Plan Assessment & Plan (1) Schizophrenia: Status: Acute Code(s): F20.9 - Schizophrenia, unspecified Plan Patient is a 40-year-old male with history of schizophrenia who arrived to ER via ambulance due to increased paranoia, delusions, and aggression secondary to treatment noncompliance. Plan: CV 15 minute safety checks Obtain collateral Start: Zyprexa 10mg BID Encourage treatment compliance Referral to outpatient psychiatric providers Discharge planning 03/11: manic. labile, irritable, grandiose delusions, impaired sleep. start VPA 1000 mg BID. taking zyprexa 10 BID. 03/12: Active on unit. Continues grandiose and delusional. Refusing medications in the morning, however compliant at night. Pt reports feeling frustrated d/t 3 day notice not being up until 03/16/25. Pt raising voice regarding psychiatrist who met with him yesterday. Pt stated, how is he going to tell me I didn't serve in the ?! I'm a General. He should be saying thank you for your service! . Pt observed later in shift, calmer and making phone calls. denies SI/HI/VH/AH. per nursing, slept 6 hours last night. 03/13: Sleeping most of the morning. keeping to self. calmer today. did not make any delusional statements during interaction. Patient states he doesn't need anything right now . denies SI/HI/VH/AH. encouraged to attend groups. Continue current tx plan. Patient educated on: diagnosis, medication risk/benefits and therapeutic strategies Reason for continued inpatient stay Substantial Risk for: med/psych decompensation Time Spent With Patient Time: Total time managing care of this patient today _10___ minutes.
[2025-03-13 20:30] VITALS: BP 128/73; PULSE 72; RESP 18; TEMP 36.7; O2SAT 97
[2025-03-13] MEDS: hydrOXYzine HCL 25 MG TABLET PO (21:08)
[2025-03-13] MEDS: traZODone HCL 50 MG TABLET PO ×2 (21:08→23:55)
[2025-03-13] MEDS: OLANZapine 5 MG TABLET PO (23:55)
[2025-03-14 07:32] VITALS: BP 118/59; PULSE 63; RESP 16; TEMP 36.8; O2SAT 96
[2025-03-14] MEDS: OLANZapine ODT 10 MG TAB.RAPDIS TRANSLINGU ×2 (08:19→20:35)
[2025-03-14] MEDS: Divalproex Sodium 500 MG TABLET.DR 1000 MG PO ×2 (08:19→20:35)
--- NOTE | 2025-03-14 09:21 | HO.PSYCHPN ---
Subjective Subjective Date of Service: 03/14/25 Reason For Visit: crisis Subjective Notes: 3 Day Interim History: Sleeping most of the morning. keeping to self. declined to meet with T/W. did not make any delusional statements during interaction. labs ordered for tomorrow morning; pt aware. denies SI/HI/VH/AH. per nursing, pt slept 8 hours last night. 3 day up on 03/16/25. Continue current tx plan. Medication Compliance: Yes Side effects from medications: No Attending Groups: No Mental Status Exam Mental Status Exam Narrative: Pt is alert and oriented; behavior is cooperative and calm; dressed in casual attire; mood is described as fine ; eye contact appropriate; Speech is normal rate, volume and not pressured; thought process is organized; Thought content is on discharge; did not make delusional statements during assessment today; denies SI/HI/VH/AH. Diagnostics Vital Signs (24Hr): Vital Signs - 24 hr 03/13/25 20:30 03/14/25 07:32 Temperature 98.1 F 98.2 F Pulse Rate 72 63 Respiratory Rate 18 16 Blood Pressure 128/73 118/59 L Pulse Oximetry 97 96 Oxygen Delivery Method Room Air Room Air BMI result Body Mass Index 25.3 Labs 03/09/25 06:43 03/09/25 06:43 Medications Medications Current Medications Acetaminophen (Acetaminophen 325 Mg Tablet) 650 mg PO Q6H PRN PRN Reason: Headache/Pain, Scale 1-10 Al Hydroxide/Mg Hydroxide (Magnesium Hydrox/Alum Hydrox 30 Ml Oral.Susp) 30 ml PO Q6H PRN PRN Reason: Heartburn/Nausea Divalproex Sodium (Divalproex Sodium 500 Mg Tablet.) 1,000 mg PO BID ELLIOT Last Admin: 03/14/25 08:19 Dose: 1,000 mg Hydroxyzine HCl (Hydroxyzine Hcl 25 Mg Tablet) 25 mg PO Q6H PRN PRN Reason: mild anxiety Last Admin: 03/13/25 21:08 Dose: 25 mg Magnesium Hydroxide (Milk Of Magnesia 30 Ml Oral.Susp) 30 ml PO DAILY PRN PRN Reason: Constipation Last Admin: 03/11/25 17:32 Dose: 30 ml Nicotine Polacrilex (Nicotine Polacrilex 2 Mg Gum) 4 mg BUCCAL Q2H PRN PRN Reason: Nicotine Cravings Olanzapine (Olanzapine Odt 10 Mg Tab.Rapdis) 10 mg TRANSLINGU BID ELLIOT Last Admin: 03/14/25 08:19 Dose: 10 mg Olanzapine (Olanzapine 5 Mg Tablet) 5 mg PO Q4H PRN PRN Reason: agitation Last Admin: 03/13/25 23:55 Dose: 5 mg Trazodone HCl (Trazodone Hcl 50 Mg Tablet) 50 mg PO BEDTIME MRX1 PRN PRN Reason: Insomnia Last Admin: 03/13/25 23:55 Dose: 50 mg Allergies Allergies Allergy/AdvReac Type Severity Reaction Status Date / Time No Known Allergies Allergy Verified 03/09/25 06:09 Assessment & Plan Assessment & Plan (1) Schizophrenia: Status: Acute Code(s): F20.9 - Schizophrenia, unspecified Plan Patient is a 40-year-old male with history of schizophrenia who arrived to ER via ambulance due to increased paranoia, delusions, and aggression secondary to treatment noncompliance. Plan: CV 15 minute safety checks Obtain collateral Start: Zyprexa 10mg BID Encourage treatment compliance Referral to outpatient psychiatric providers Discharge planning 03/11: manic. labile, irritable, grandiose delusions, impaired sleep. start VPA 1000 mg BID. taking zyprexa 10 BID. 03/12: Active on unit. Continues grandiose and delusional. Refusing medications in the morning, however compliant at night. Pt reports feeling frustrated d/t 3 day notice not being up until 03/16/25. Pt raising voice regarding psychiatrist who met with him yesterday. Pt stated, how is he going to tell me I didn't serve in the ?! I'm a General. He should be saying thank you for your service! . Pt observed later in shift, calmer and making phone calls. denies SI/HI/VH/AH. per nursing, slept 6 hours last night. 03/13: Sleeping most of the morning. keeping to self. calmer today. did not make any delusional statements during interaction. Patient states he doesn't need anything right now . denies SI/HI/VH/AH. encouraged to attend groups. Continue current tx plan. 03/14: Sleeping most of the morning. keeping to self. declined to meet with T/W. did not make any delusional statements during interaction. labs ordered for tomorrow morning; pt aware. denies SI/HI/VH/AH. per nursing, pt slept 8 hours last night. 3 day up on 03/16/25. Continue current tx plan Patient educated on: diagnosis and medication risk/benefits Reason for continued inpatient stay Substantial Risk for: med/psych decompensation Time Spent With Patient Time: Total time managing care of this patient today _10___ minutes.
[2025-03-14 20:00] VITALS: BP 132/61; PULSE 75; RESP 18; TEMP 37.1; O2SAT 98
[2025-03-14] MEDS: hydrOXYzine HCL 25 MG TABLET PO (20:35)
[2025-03-14] MEDS: traZODone HCL 50 MG TABLET PO ×2 (20:35→22:10)
[2025-03-14] MEDS: OLANZapine 5 MG TABLET PO (20:35)
[2025-03-15 08:00] VITALS: BP 119/67; PULSE 70; RESP 18; TEMP 36.9; O2SAT 97
--- NOTE | 2025-03-15 08:49 | HO.PSYCHPN ---
Subjective Subjective Date of Service: 03/15/25 Reason For Visit: crisis Subjective Notes: 3 Day Interim History: Keeping to self. medication compliant. Calm until asked for lab work; pt educated regarding need for lab work with Depjasonte, pt continues to refuse. Irritable. Continues making delusional statements regarding being a General in the . Adamantly denies any SI/HI/VH/AH. 3 day up 03/16/25. Medication Compliance: Yes Side effects from medications: No Attending Groups: No Mental Status Exam Mental Status Exam Narrative: Pt is alert and oriented; behavior is cooperative and calm; dressed in casual attire; mood is described as good ; eye contact appropriate; Speech is normal rate, volume and not pressured; thought process is organized; Thought content is on discharge; fixed grandiose delusions; denies SI/HI/VH/AH. Diagnostics Vital Signs (24Hr): Vital Signs - 24 hr 03/14/25 20:00 03/15/25 08:00 Temperature 98.7 F 98.5 F Pulse Rate 75 70 Respiratory Rate 18 18 Blood Pressure 132/61 119/67 Pulse Oximetry 98 97 Oxygen Delivery Method Room Air Room Air BMI result Body Mass Index 25.3 Labs 03/09/25 06:43 03/09/25 06:43 Medications Medications Current Medications Acetaminophen (Acetaminophen 325 Mg Tablet) 650 mg PO Q6H PRN PRN Reason: Headache/Pain, Scale 1-10 Al Hydroxide/Mg Hydroxide (Magnesium Hydrox/Alum Hydrox 30 Ml Oral.Susp) 30 ml PO Q6H PRN PRN Reason: Heartburn/Nausea Divalproex Sodium (Divalproex Sodium 500 Mg Tablet.) 1,000 mg PO BID ELLIOT Last Admin: 03/14/25 20:35 Dose: 1,000 mg Hydroxyzine HCl (Hydroxyzine Hcl 25 Mg Tablet) 25 mg PO Q6H PRN PRN Reason: mild anxiety Last Admin: 03/14/25 20:35 Dose: 25 mg Magnesium Hydroxide (Milk Of Magnesia 30 Ml Oral.Susp) 30 ml PO DAILY PRN PRN Reason: Constipation Last Admin: 03/11/25 17:32 Dose: 30 ml Nicotine Polacrilex (Nicotine Polacrilex 2 Mg Gum) 4 mg BUCCAL Q2H PRN PRN Reason: Nicotine Cravings Olanzapine (Olanzapine Odt 10 Mg Tab.Rapdis) 10 mg TRANSLINGU BID ELLIOT Last Admin: 03/14/25 20:35 Dose: 10 mg Olanzapine (Olanzapine 5 Mg Tablet) 5 mg PO Q4H PRN PRN Reason: agitation Last Admin: 03/14/25 20:35 Dose: 5 mg Trazodone HCl (Trazodone Hcl 50 Mg Tablet) 50 mg PO BEDTIME MRX1 PRN PRN Reason: Insomnia Last Admin: 03/14/25 22:10 Dose: 50 mg Allergies Allergies Allergy/AdvReac Type Severity Reaction Status Date / Time No Known Allergies Allergy Verified 03/09/25 06:09 Assessment & Plan Assessment & Plan (1) Schizophrenia: Status: Acute Code(s): F20.9 - Schizophrenia, unspecified Plan Patient is a 40-year-old male with history of schizophrenia who arrived to ER via ambulance due to increased paranoia, delusions, and aggression secondary to treatment noncompliance. Plan: CV 15 minute safety checks Obtain collateral Start: Zyprexa 10mg BID Encourage treatment compliance Referral to outpatient psychiatric providers Discharge planning 03/11: manic. labile, irritable, grandiose delusions, impaired sleep. start VPA 1000 mg BID. taking zyprexa 10 BID. 03/12: Active on unit. Continues grandiose and delusional. Refusing medications in the morning, however compliant at night. Pt reports feeling frustrated d/t 3 day notice not being up until 03/16/25. Pt raising voice regarding psychiatrist who met with him yesterday. Pt stated, how is he going to tell me I didn't serve in the ?! I'm a General. He should be saying thank you for your service! . Pt observed later in shift, calmer and making phone calls. denies SI/HI/VH/AH. per nursing, slept 6 hours last night. 03/13: Sleeping most of the morning. keeping to self. calmer today. did not make any delusional statements during interaction. Patient states he doesn't need anything right now . denies SI/HI/VH/AH. encouraged to attend groups. Continue current tx plan. 03/14: Sleeping most of the morning. keeping to self. declined to meet with T/W. did not make any delusional statements during interaction. labs ordered for tomorrow morning; pt aware. denies SI/HI/VH/AH. per nursing, pt slept 8 hours last night. 3 day up on 03/16/25. Continue current tx plan 03/15: Keeping to self. medication compliant. Calm until asked for lab work; pt educated regarding need for lab work with Depakote, pt continues to refuse. Irritable. Continues making delusional statements regarding being a General in the . Adamantly denies any SI/HI/VH/AH. 3 day up 03/16/25. Patient educated on: diagnosis and medication risk/benefits Reason for continued inpatient stay Substantial Risk for: med/psych decompensation Time Spent With Patient Time: Total time managing care of this patient today _20___ minutes.
[2025-03-15] MEDS: OLANZapine ODT 10 MG TAB.RAPDIS TRANSLINGU ×2 (08:53→20:56)
[2025-03-15] MEDS: Divalproex Sodium 500 MG TABLET.DR 1000 MG PO ×2 (08:53→20:56)
[2025-03-15 19:42] LABS: Alanine Aminotransferase 47 U/L (0-40); Albumin Level 3.8 g/dL (3.5-5.0); Alkaline Phosphatase 53 U/L (39-117); Anion Gap 15 (12-20); Aspartate Amino Transferase 39 U/L (5-37); Bilirubin Direct < 0.2 mg/dL (0.0-0.5); Bilirubin Total 0.1 mg/dL (0.0-1.0); Blood Urea Nitrogen 12 mg/dL (9-16); Calcium 9.2 mg/dL (8.4-10.2); Carbon Dioxide 24 mmol/L (22-29); Chloride 106 mmol/L (96-108); Cholesterol 247 mg/dL (<200); Creatinine Clr Calc Pharmacy 89.6; Estimated Glomerular Filt Rate > 60; Glucose Random 171 mg/dL (60-115); HDL Cholesterol 31 mg/dL (>40); Potassium 4.6 mmol/L (3.3-5.1); Sodium 140 mmol/L (135-145); Total Protein 6.5 g/dL (6.5-8.0); Triglycerides 916 mg/dL (<150)
[2025-03-15 20:00] VITALS: BP 132/63; PULSE 73; RESP 15; TEMP 37.1; O2SAT 97
[2025-03-15 20:00] LABS: Ammonia 62 umol/L (13-55)
[2025-03-15] MEDS: Acetaminophen 325 MG TABLET 650 MG PO (20:55)
[2025-03-15] MEDS: hydrOXYzine HCL 25 MG TABLET PO (20:56)
[2025-03-15] MEDS: traZODone HCL 50 MG TABLET PO (20:57)
[2025-03-16 08:00] VITALS: BP 135/90; PULSE 89; TEMP 36.9; O2SAT 98
[2025-03-16] MEDS: Divalproex Sodium 500 MG TABLET.DR 1000 MG PO (08:05)
[2025-03-16] MEDS: OLANZapine ODT 10 MG TAB.RAPDIS TRANSLINGU (08:05)
[2025-03-16 09:03] LABS: Estimated Average Glucose 134 mg/dL; Hemoglobin A1C 168.7889 umol/L; Hemoglobin A1c % 6.3 % (<6.0); Total Hemoglobin (HGBA1C) 3693.9793 umol/L
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
== END 2025-03-16 10:28 | disposition home or self-care (01) | DRG 750 ==
LOC: HO.ED 03-10 08:56 → HO.PADLT16 03-10 12:34
PROVIDERS: Emergency Medicine; Admitting Provider Registered Nurse; Emergency Provider Emergency Medicine; Responsible Provider Registered Nurse; Visit Provider Psychiatry & Neurology Psychiatry
DX: F20.9 Schizophrenia, unspecified (principal); Z91.148 Patient's other noncompliance with medication regimen for other reason; Z79.899 Other long term (current) drug therapy
CPT/HCPCS: 36415; 80048; 80053; 80061; 80164; 80307; 82140; 82248; 83036; 85025; 99285; J1200; J1630; J3360; S9485

== ENCOUNTER → 2025-03-10 12:08 | Outpatient (BNV) | payer OTHER, SELFPAY | PROVIDERS: Admitting Provider Registered Nurse; Emergency Provider Emergency Medicine; Responsible Provider Registered Nurse; Visit Provider Psychiatry & Neurology Psychiatry | DX: F20.0 Paranoid schizophrenia (principal) | CPT/HCPCS: 90792; 99231; 99232 ==